=== PATIENT | male | born 1955 | race Caucasian/White ===

== ENCOUNTER 2021-09-29 15:53 | Inpatient (IN) | payer MEDICAID ==
[~2021-09-29] VITALS: Ht 180.3 cm; Wt 84.8 kg
--- NOTE | 2021-09-29 16:25 | NUR ---
Recived pt 66 years male came by pramdic c/o chest pain and sob for one week awake and fallow command c/o coughing and congetion at this time
[2021-09-29 16:31] LABS: BASOPHILS # (AUTO) 0.1 K/uL (0.0-0.2); BASOPHILS % (AUTO) 0.7 % (0.0-2.0); EOSINOPHILS % (AUTO) 0.4 % (0.0-6.0); HEMATOCRIT 32 % (39-51); LYMPHOCYTES # (AUTO) 2.1 K/uL (0.8-4.8); MEAN CORPUSCULAR HGB CONC 32 g/dl (31.0-36.0); MEAN CORPUSCULAR VOLUME 84 fL (80-96); MONOCYTES # (AUTO) 0.9 K/uL (0.1-1.30); MONOCYTES % (AUTO) 6.9 % (2.0-12.0); NEUTROPHILS # (AUTO) 9.9 K/uL (1.8-8.9); PLATELET COUNT (AUTO) 469 K/uL (150-450); RED BLOOD CELL COUNT(AUTO) 3.76 MIL/uL (4.5-6.0)
--- NOTE | 2021-09-29 17:15 | NUR ---
MOVE SHEET SUBMITTED AND CALLED FOR BED.
[2021-09-29 17:20] LABS: ALANINE AMINOTRANSFERASE 48 U/L (12-78); ALBUMIN 1.7 g/dL (3.4-5.0); ALKALINE PHOSPHATASE 73 U/L (46-116); ASPARTATE AMINOTRANSFERASE 32 U/L (15-37); BILIRUBIN,DIRECT 0.1 mg/dL (0.0-0.2); BILIRUBIN,TOTAL 0.3 mg/dL (0.2-1.0); CALCIUM, SERUM 8.1 mg/dL (8.5-10.1); CARBON DIOXIDE 26 mmol/L (21-32); CHLORIDE 98 mmol/L (98-107); CREATININE 0.8 mg/dL (0.6-1.3); GLUCOSE 137 mg/dL (74-106); POTASSIUM 3.8 mmol/L (3.5-5.1); SODIUM SERUM 130 mmol/L (136-145); TOTAL PROTEIN, SERUM 6.7 g/dL (6.4-8.2); UREA NITROGEN, BLOOD 13 mg/dL (7-18)
[2021-09-29] MEDS ORDERED: CEFTRIAXONE 1GM BAG (ER ONLY) 1 GM/50 ML PIGGYBACK IV ONE (17:30)
[2021-09-29] MEDS ORDERED: AZITHROMYCIN 250 MG TABLET PO ONE (17:30)
--- NOTE | 2021-09-29 17:48 | NUR ---
EPIC CALLED WET PLANT OPERATOR PAGED
[2021-09-29] MEDS ORDERED: IOHEXOL-350 100 ML VIAL IV ONE (18:10)
[2021-09-29] MEDS ORDERED: CT SWABBABLE VALVE TRANS SET 1 EA INFUS.SET MC ONE (18:10)
[2021-09-29] MEDS ORDERED: IV NS 0.9% 250 ML IV ONE (18:10)
[2021-09-29] MEDS ORDERED: CEFTRIAXONE 1GM BAG (ER ONLY) 50 ML IV ONE (18:30)
[2021-09-29] MEDS ORDERED: AZITHROMYCIN 250 MG TABLET ONE (18:32)
--- NOTE | 2021-09-29 18:41 | NUR ---
COVID SWAB DONE AND SENT TO LAB
--- NOTE | 2021-09-29 18:50 | NUR ---
coughing up thick yellow green color mod amt no sob or distress hob 45@ all time o2 sat 98% on room air
--- NOTE | 2021-09-29 19:15 | NUR ---
DUPLEX DOPPLER BEING DONE AT BEDSIDE
--- NOTE | 2021-09-29 19:23 | NUR ---
Hand off to Maia heck
--- NOTE | 2021-09-29 21:43 | NUR ---
COVID SWAB PCR DONE
--- NOTE | 2021-09-29 21:47 | NUR ---
REPORT GIVEN TO MEG QUINTANA
--- NOTE | 2021-09-29 22:22 | NUR ---
TRANSFERRED PT TO [facility] 108 VIA ACLS PROTOCOL.
[2021-09-29 22:44] VITALS: BP 124/69
[2021-09-29] MEDS ORDERED: Z GUARD REMEDY 4 OZ OINT TP PRN (23:30)
[2021-09-29] MEDS ORDERED: MORPHINE SULFATE INJ 2 MG/ML DISP.SYRIN IV PRN (23:30)
[2021-09-29] MEDS ORDERED: MAG HYDROX/AL HYDROX/SIMETH 30 ML UDC PO PRN (23:30)
[2021-09-29] MEDS ORDERED: ONDANSETRON HCL/PF 4 MG/2 ML VIAL IVP PRN (23:30)
[2021-09-29] MEDS ORDERED: MAGNESIUM HYDROXIDE 30 ML UDC PO PRN (23:30)
[2021-09-29] MEDS ORDERED: ACETAMINOPHEN 325 MG TABLET PO PRN (23:30)
[2021-09-29] MEDS: IV NS 0.9% 1,000 ML IV PRN (23:45)
[2021-09-30] VITALS: BP_SYST 111; BP_SYST 137; BP_DIAS 73; BP_DIAS 84
[2021-09-30 04:00] VITALS: BP 116/80
--- NOTE | 2021-09-30 06:51 | NUR ---
RN notes Admitted a 66 year old male from ER via stetcher for complaint of palpitation for 1 week. Admitted for diagnosis of arrythmia with no medical history. Alert and oriented. Verbally able to communicate needs. Ambulatory. Vital signs wnl except for heart rate which is tachycardia 119 to 150. Needs attended. Kept clean and dry. Will endorse to next shift for continuity of care.
[2021-09-30 06:58] LABS: BASOPHILS % (AUTO) 0.2 % (0.0-2.0); EOSINOPHILS % (AUTO) 0.5 % (0.0-6.0); HEMATOCRIT 27 % (39-51); LYMPHOCYTES # (AUTO) 1.7 K/uL (0.8-4.8); MEAN CORPUSCULAR HGB CONC 33 g/dl (31.0-36.0); MEAN CORPUSCULAR VOLUME 84 fL (80-96); MONOCYTES # (AUTO) 0.7 K/uL (0.1-1.30); MONOCYTES % (AUTO) 5.6 % (2.0-12.0); NEUTROPHILS # (AUTO) 9.5 K/uL (1.8-8.9); NEUTROPHILS % (AUTO) 79.7 % (43.0-81.0); PLATELET COUNT (AUTO) 466 K/uL (150-450); RED BLOOD CELL COUNT(AUTO) 3.27 MIL/uL (4.5-6.0); WHITE BLOOD COUNT (AUTO) 11.9 K/uL (4.3-11.0)
--- NOTE | 2021-09-30 07:30 | NUR ---
RN notes received patient in bed awake.patient . Alert and oriented times 4. Verbally able to communicate needs. Ambulatory. no pain noted. no sob noted. iv access lac intact. on tele monitor. bed locked in the lowest position. call light and table in reach. Will continue to monitor.
[2021-09-30] MEDS: PANTOPRAZOLE 40 MG TABLET.DR PO SCH (07:45)
[2021-09-30 07:53] LABS: CALCIUM, SERUM 7.9 mg/dL (8.5-10.1); CREATININE 0.6 mg/dL (0.6-1.3); MAGNESIUM 1.8 mg/dL (1.8-2.4); PHOSPHORUS 3.4 mg/dL (2.5-4.9); POTASSIUM 4.1 mmol/L (3.5-5.1)
[2021-09-30 08:00] VITALS: BP 107/76
[2021-09-30 09:39] LABS: THYROID STIMULATING HORMONE 1.174 uIU/mL (0.358-3.74)
[2021-09-30 12:00] VITALS: BP 112/76
[2021-09-30 16:13] VITALS: BP 118/79
--- NOTE | 2021-09-30 18:40 | NUR ---
RN closing notes patient in bed awake.patient is Alert and oriented times 4. Verbally able to communicate needs. Ambulatory. no pain noted. no sob noted. Iv access lac intact running 75 ml/hr. on tele monitor. all due meds given as ordered. sample of thoracenthesis fluid 110 ml sent to the lab at 1447 . 2 times chest xray done s/p thoracenthesis. Bed locked in the lowest position. call light and table in reach. Will endorse for ata.
--- NOTE | 2021-09-30 19:10 | NUR ---
RN NOTES RECEIVED REPORT FROM MORNING RN. PATIENT IN BED AWAKE A/O X4 VITAL SIGNS TAKEN AND RECORDED. FEBRILE. ALL SAFETY MEASURES IN PLACE AT ALL TIMES. HOB ELEVATED. CALL LIGHT WITHIN REACH. WILL CLOSELY MONITOR THE PATIENT.
[2021-09-30 20:00] VITALS: BP 128/70
[2021-09-30] MEDS ORDERED: AZITHROMYCIN 500 MG in IV D5W 250 ML IV SCH (21:00)
[2021-09-30] MEDS ORDERED: CEFTRIAXONE 1 G in IV D5W 50 ML IV SCH (21:00)
--- NOTE | 2021-09-30 22:00 | NUR ---
RN NOTES RE-INSERTED PERIPHERAL LINE AT R HAND G22 PATENT. NO INFILTRATION NOTED AT THIS TIME. IV ABX STARTED ORDERED
[2021-09-30] MEDS: ZOLPIDEM TARTRATE 5 MG TABLET PO PRN (22:14)
[2021-10-01] VITALS: BP 128/78
[2021-10-01] MEDS: IV NS 0.9% 1,000 ML IV PRN ×2 (00:05→13:38)
[2021-10-01 04:00] VITALS: BP 108/58
[2021-10-01 06:18] LABS: BILIRUBIN,URINE NEGATIVE (NEGATIVE); COLOR,URINE YELLOW (YELLOW); LEUKOCYTE ESTERASE ,URINE NEGATIVE (NEGATIVE); NITRITE, URINE NEGATIVE (NEGATIVE); PROTEIN,URINE NEGATIVE (NEGATIVE); UGLUCOSE NEGATIVE (NEGATIVE)
[2021-10-01 06:27] LABS: BACTERIA,URINE None seen /HPF (None Seen); RBC,URINE 0-2 /HPF (0-2); SQUAMOUS EPITHELIAL CELL,UR Few /HPF (None Seen); WBC,URINE 0-2 /HPF (0-3)
[2021-10-01 06:31] LABS: BASOPHILS % (AUTO) 0.3 % (0.0-2.0); EOSINOPHILS % (AUTO) 0.7 % (0.0-6.0); HEMATOCRIT 29 % (39-51); HEMOGLOBIN 9.3 g/dL (13.5-17.5); LYMPHOCYTES # (AUTO) 2.1 K/uL (0.8-4.8); LYMPHOCYTES % (AUTO) 17.4 % (20.0-44.0); MEAN CORPUSCULAR HGB CONC 33 g/dl (31.0-36.0); MEAN CORPUSCULAR VOLUME 84 fL (80-96); MONOCYTES # (AUTO) 0.7 K/uL (0.1-1.30); MONOCYTES % (AUTO) 6.2 % (2.0-12.0); NEUTROPHILS # (AUTO) 8.9 K/uL (1.8-8.9); NEUTROPHILS % (AUTO) 75.4 % (43.0-81.0); PLATELET COUNT (AUTO) 474 K/uL (150-450); RED BLOOD CELL COUNT(AUTO) 3.39 MIL/uL (4.5-6.0); WHITE BLOOD COUNT (AUTO) 11.8 K/uL (4.3-11.0)
[2021-10-01 06:32] LABS: CALCIUM, SERUM 8.1 mg/dL (8.5-10.1); CREATININE 0.7 mg/dL (0.6-1.3); MAGNESIUM 2.1 mg/dL (1.8-2.4); PHOSPHORUS 3.9 mg/dL (2.5-4.9); POTASSIUM 4.3 mmol/L (3.5-5.1)
--- NOTE | 2021-10-01 06:43 | NUR ---
RN NOTES PATIENT REMAINS STABLE NO SIGNIFICANT CHANGES IN HEALTH CONDITION AFEBRILE. ALL DUE MEDS GIVEN ORDERED. IV LINE PATENT AND INTACT. ALL SAFETY MEASURES IN PLACE AT ALL TIMES. HOB ELEVATED. CALL LIGHT WITHIN REACH. BED ON LOWEST POSITION AND LOCKED. ALL NEEDS ATTENDED. WILL ENDORSED TO MORNING SHIFT FOR TERRI
--- NOTE | 2021-10-01 07:23 | NUR ---
RN OPENING NOTES RCEIVED PATIENT IN BED, AWAKE, A/O X4, VERBALLY RESPONSIVE. NO SIGNS OF ACUTE DISTRESS NOTED. STABLE ON ROOM AIR, NO SOB NOTED. BREATHING EVEN AND UNLABORED. NOTED WITH IV ACCESS ON RIGHT HAND #22G, INTACT AND PATENT WITH NS @75 ML/HR INFUSING WELL. NO C/O PAIN OR DISCOMFORT AT THIS TIME. SAFETY MEASURES IN PLACE. BED LOCKED AND IN LOWEST POSITION, SR UP X2, CALL LIGHT AND TABLE PLACED WITHIN EASY REACH. WILL CONTINUE TO MONITOR PATIENT.
[2021-10-01] MEDS: PANTOPRAZOLE 40 MG TABLET.DR PO SCH (07:46)
[2021-10-01 08:00] VITALS: BP 102/73
[2021-10-01 12:00] VITALS: BP 101/68
[2021-10-01] MEDS: SOD FERRIC GLUC 125 MG in IV NS 0.9% 100 ML IV SCH (15:10)
[2021-10-01 16:00] VITALS: BP 108/68
--- NOTE | 2021-10-01 18:35 | NUR ---
RN CLOSING NOTES PATIENT RESTING IN BED, AWAKE, A/O X4. NO SIGNS OF ACUTE DISTRESS NOTED. REMAINS STABLE ON ROOM AIR, NO SOB NOTED. BREATHING EVEN AND UNLABORED. STILL NOTED WITH OCCASIONAL NON-PRODUCTIVE COUGH. ON TELE MONITOR SHOWING SINUS TACH IN 100-110'S. WITH IV ACCESS ON RIGHT HAND #22G, INTACT AND PATENT WITH NS @75 ML/HR INFUSING WELL. ALL DUE MEDS GIVEN, TOLERATED WELL. SAFETY MEASURES MAINTAINED. BED LOCKED AND IN LOWEST POSITION, SR UP X2, CALL LIGHT AND TABLE PLACED WITHIN EASY REACH. WILL ENDORSE TO NEXT SHIFT FOR CONTINUITY OF CARE.
--- NOTE | 2021-10-01 19:20 | NUR ---
RN NOTE PT RECEIVED IN BED. PT IS ABLE TO AMBULATE. ALERT AND ORIENTED X4, ABLE TO VERBALIZE NEEDS. PT ON ROOM AIR SHOWING NO S/SX OF RESP DISTRESS/SOB. BREATHING EVEN AND UNLABORED. ON SENIOR ARCHITECT SHOWING ST. DENIES PAIN/CHEST PAIN. ON CARDIAC DIET. IV ACCESS NOTED ON RIGHT HAND #22, LINE FLUSHED, PATENT, AND INTACT WITH NO SIGNS OF INFILTRATION. 0.9% NS RUNNING AT 75 CC/HR. ALL SAFETY MEASURES IMPLEMENTED. CALL LIGHT WITHIN REACH. BED LOCKED AND IN LOWEST POSITION. HOB ELEVATED. WILL CONTINUE TO MONITOR AND ASSESS FOR ANY CHANGES DURING SHIFT.
[2021-10-01 20:00] VITALS: BP 100/56
[2021-10-01] MEDS ORDERED: LEVOFLOXACIN 750 MG /D5W 150ML 150 ML IV ONE (21:19)
[2021-10-01] MEDS: LEVOFLOXACIN 750 MG /D5W 150ML 750 MG in PREMIX 1 EA IV SCH (21:42)
[2021-10-01] MEDS: ZOLPIDEM TARTRATE 5 MG TABLET PO PRN (22:16)
[2021-10-01] MEDS ORDERED: PIPERACILLIN /TAZOBACTAM 3.375 G VIAL IV ONE (23:34)
[2021-10-01] MEDS: ZOSYN IVPB 3.375 G in IV D5W 50ml IV SCH (23:39)
[2021-10-02] VITALS: BP 100/63
[2021-10-02] MEDS ORDERED: PIPERACILLIN /TAZOBACTAM 3.375 G in IV D5W 50 ML IV SCH ×2
[2021-10-02 04:00] VITALS: BP 105/65
[2021-10-02] MEDS ORDERED: PIPERACILLIN /TAZOBACTAM 3.375 G VIAL IV ONE (04:47)
[2021-10-02] MEDS: ZOSYN IVPB 3.375 G in IV D5W 50ml IV SCH (05:40)
[2021-10-02] MEDS: IV NS 0.9% 1,000 ML IV PRN ×2 (05:40→17:45)
[2021-10-02 06:50] LABS: BASOPHILS # (AUTO) 0.1 K/uL (0.0-0.2); BASOPHILS % (AUTO) 0.6 % (0.0-2.0); EOSINOPHILS % (AUTO) 0.5 % (0.0-6.0); HEMATOCRIT 28 % (39-51); HEMOGLOBIN 9.1 g/dL (13.5-17.5); LYMPHOCYTES # (AUTO) 1.8 K/uL (0.8-4.8); LYMPHOCYTES % (AUTO) 15.5 % (20.0-44.0); MEAN CORPUSCULAR HGB CONC 33 g/dl (31.0-36.0); MEAN CORPUSCULAR VOLUME 84 fL (80-96); MONOCYTES # (AUTO) 0.7 K/uL (0.1-1.30); MONOCYTES % (AUTO) 6.3 % (2.0-12.0); NEUTROPHILS # (AUTO) 8.8 K/uL (1.8-8.9); NEUTROPHILS % (AUTO) 77.1 % (43.0-81.0); PLATELET COUNT (AUTO) 470 K/uL (150-450); RED BLOOD CELL COUNT(AUTO) 3.29 MIL/uL (4.5-6.0); WHITE BLOOD COUNT (AUTO) 11.4 K/uL (4.3-11.0)
--- NOTE | 2021-10-02 06:53 | NUR ---
RN NOTE NO CHANGES IN PT CONDITION DURING SHIFT. PT ON ROOM AIR SHOWING NO S/SX OF RESP DISTRESS/SOB. BREATHING EVEN AND UNLABORED. ON VEGETABLE TIER SHOWING ST. DENIES PAIN/CHEST PAIN. IV ACCESS NOTED ON RIGHT HAND #22, LINE FLUSHED, PATENT, AND INTACT WITH NO SIGNS OF INFILTRATION. 0.9% NS RUNNING AT 75 CC/HR. ALL SAFETY MEASURES IMPLEMENTED. ALL DUE MEDS GIVEN ORDERED. CALL LIGHT WITHIN REACH. BED LOCKED AND IN LOWEST POSITION. HOB ELEVATED. WILL ENDORSE TO MORNING SHIFT RN FOR TERRI.
--- NOTE | 2021-10-02 07:47 | NUR ---
RN OPENING NOTES Patient seen comfortably lying in bed, breathing even and unlabored, no shortness of breath, no grimacing, denies any pain or discomfort at this time, no apparent distress noted. Call light left within reach, safety precautions in place, brakes locked, side rails up X 2, will monitor closely for any changes.
[2021-10-02 08:00] VITALS: BP 108/68
[2021-10-02] MEDS: PANTOPRAZOLE 40 MG TABLET.DR PO SCH (08:31)
[2021-10-02 08:41] LABS: CALCIUM, SERUM 8.3 mg/dL (8.5-10.1); CREATININE 0.7 mg/dL (0.6-1.3); MAGNESIUM 1.9 mg/dL (1.8-2.4); PHOSPHORUS 4.1 mg/dL (2.5-4.9); POTASSIUM 4.1 mmol/L (3.5-5.1)
--- NOTE | 2021-10-02 10:53 | NUR ---
Patient seen by Dr. Saez (Warehouse Team Member) with new orders for computed tomography guided right sided pigtail insertion then connect to pleura-vac (diagnosis: emphyema), orders noted and carried out, called radiologist to verify that orders are seen in the system, spoke to Sean from radiology.
[2021-10-02] MEDS ORDERED: LORAZEPAM 1 MG TABLET PO PRN (11:00)
[2021-10-02 11:07] LABS: *SPE A/G RATIO 0.5 (0.7-1.7); *SPE ALPHA-1-GLOBULIN 0.5 g/dL (0.0-0.4); *SPE BETA GLOBULIN 0.9 g/dL (0.7-1.3); *SPE M-SPIKE Not Observed g/dL (Not Observed)
[2021-10-02 12:00] VITALS: BP 103/70
[2021-10-02] MEDS: PIPERACILLIN /TAZOBACTAM 3.375 G in IV D5W 100 ML IV SCH ×2 (12:55→21:55)
--- NOTE | 2021-10-02 14:00 | NUR ---
Called Radiology to verify if CT guided right-sided pigtail insertion is to be done today, spoke to Sean and he said that order is in the system and will call unit back to verify if it will be done today. Dr. Saez, charge nurse, and patient made aware of the situation. Patient stated that he feels okay right now and will call for assistance if he feels something unusual, no apparent distress noted, will monitor closely for any changes.
[2021-10-02] MEDS: SOD FERRIC GLUC 125 MG in IV NS 0.9% 100 ML IV SCH (15:37)
[2021-10-02 16:00] VITALS: BP 119/72
--- NOTE | 2021-10-02 18:18 | NUR ---
Called Radiology to verify if orders for CT guided right-sided pigtail insertion is appearing in the system, spoke to Shayna and she stated that she is seeing the orders and procedure possibly to be done in am, Shayna from Radiology also added that order is clear and if needs to be edited, it will be edited. Manager Ed (Dr. Saez), informed of the situation and acknowledged. Charge nurse, and patient also made aware of the situation.
--- NOTE | 2021-10-02 18:43 | NUR ---
RN CLOSING NOTES Patient lying in bed, no apparent distress noted, no shortness of breath, respirations even and unlabored, no dizziness, no palpitation, no chest pain, denies any pain or discomfort. All medications given per MD order, tolerating well. Patient is on IV fluids NS at 75ml/hr infusing well on his right hand peripheral IV line, IV site remained patent and flushing well, no swelling, no redness at this time. All needs attended, kept clean and dry, safety precautions in place, brakes locked, frequent visual checks rendered, frequent repositioning done, side rails up X 2, call light left within reach, will endorse to next shift for continuity of care.
--- NOTE | 2021-10-02 19:20 | NUR ---
RN NOTE PT RECEIVED IN BED. PT IS ABLE TO AMBULATE. ALERT AND ORIENTED X4, ABLE TO VERBALIZE NEEDS. PT ON ROOM AIR SHOWING NO S/SX OF RESP DISTRESS/SOB. BREATHING EVEN AND UNLABORED. ON VAULT CLERK SHOWING ST. DENIES PAIN/CHEST PAIN. IV ACCESS NOTED ON RIGHT HAND #22, LINE FLUSHED, PATENT, AND INTACT WITH NO SIGNS OF INFILTRATION. 0.9% NS RUNNING AT 75 CC/HR. ALL SAFETY MEASURES IMPLEMENTED. CALL LIGHT WITHIN REACH. BED LOCKED AND IN LOWEST POSITION. HOB ELEVATED. WILL CONTINUE TO MONITOR AND ASSESS FOR ANY CHANGES DURING SHIFT.
[2021-10-02 20:00] VITALS: BP 125/80
[2021-10-02] MEDS: LEVOFLOXACIN 750 MG /D5W 150ML 750 MG in PREMIX 1 EA IV SCH (20:38)
[2021-10-03] VITALS: BP 101/52
[2021-10-03 04:00] VITALS: BP 110/74
[2021-10-03] MEDS: PIPERACILLIN /TAZOBACTAM 3.375 G in IV D5W 100 ML IV SCH ×3 (05:20→20:48)
[2021-10-03 06:46] LABS: CALCIUM, SERUM 8.3 mg/dL (8.5-10.1); CREATININE 0.6 mg/dL (0.6-1.3); PHOSPHORUS 3.8 mg/dL (2.5-4.9); POTASSIUM 3.9 mmol/L (3.5-5.1)
--- NOTE | 2021-10-03 07:01 | NUR ---
RN NOTE NO CHANGES IN PT CONDITION DURING SHIFT. PT ON ROOM AIR SHOWING NO S/SX OF RESP DISTRESS/SOB. BREATHING EVEN AND UNLABORED. ON OPTICAL ADVISOR SHOWING ST. DENIES PAIN/CHEST PAIN. IV ACCESS NOTED ON RIGHT HAND #22, LINE FLUSHED, PATENT, AND INTACT WITH NO SIGNS OF INFILTRATION. 0.9% NS RUNNING AT 75 CC/HR. ALL SAFETY MEASURES IMPLEMENTED. ALL DUE MEDS GIVEN ORDERED. CALL LIGHT WITHIN REACH. BED LOCKED AND IN LOWEST POSITION. HOB ELEVATED. WILL ENDORSE TO MORNING SHIFT RN FOR TERRI.
[2021-10-03 07:02] LABS: BASOPHILS % (AUTO) 0.5 % (0.0-2.0); EOSINOPHILS % (AUTO) 0.7 % (0.0-6.0); HEMATOCRIT 29 % (39-51); HEMOGLOBIN 9.3 g/dL (13.5-17.5); LYMPHOCYTES # (AUTO) 1.6 K/uL (0.8-4.8); LYMPHOCYTES % (AUTO) 18.8 % (20.0-44.0); MEAN CORPUSCULAR HGB CONC 33 g/dl (31.0-36.0); MEAN CORPUSCULAR VOLUME 84 fL (80-96); MONOCYTES # (AUTO) 0.6 K/uL (0.1-1.30); MONOCYTES % (AUTO) 7.2 % (2.0-12.0); NEUTROPHILS # (AUTO) 6.2 K/uL (1.8-8.9); NEUTROPHILS % (AUTO) 72.8 % (43.0-81.0); PLATELET COUNT (AUTO) 429 K/uL (150-450); WHITE BLOOD COUNT (AUTO) 8.5 K/uL (4.3-11.0)
--- NOTE | 2021-10-03 07:31 | NUR ---
IMAGING TECH OPENING NOTES PT RECEIVED IN BED. PT IS ABLE TO AMBULATE. A/O X4, ABLE TO VERBALIZE NEEDS. PT ON ROOM AIR SHOWING NO S/SX OF RESP DISTRESS/SOB. BREATHING EVEN AND UNLABORED. ON MANAGER MED SURG SHOWING ST. DENIES PAIN/CHEST PAIN. IV ACCESS NOTED ON RIGHT HAND #22, LINE FLUSHED, PATENT, AND INTACT WITH NO SIGNS OF INFILTRATION. 0.9% NS RUNNING AT 75 CC/HR. ALL SAFETY MEASURES IMPLEMENTED. CALL LIGHT WITHIN REACH. BED LOCKED AND IN LOWEST POSITION. HOB ELEVATED. WILL CONTINUE TO MONITOR.
[2021-10-03 08:00] VITALS: BP 120/70
[2021-10-03] MEDS: PANTOPRAZOLE 40 MG TABLET.DR PO SCH (08:03)
[2021-10-03] MEDS: SERTRALINE HCL 25 MG TABLET PO SCH (08:04)
[2021-10-03 12:00] VITALS: BP 113/70
[2021-10-03] MEDS: SOD FERRIC GLUC 125 MG in IV NS 0.9% 100 ML IV SCH (14:28)
[2021-10-03 16:00] VITALS: BP 103/65
[2021-10-03] MEDS: IV NS 0.9% 1,000 ML IV PRN (18:15)
--- NOTE | 2021-10-03 18:37 | NUR ---
PUMP INSTALLER CLOSING NOTES PATIENT RESTING IN BED, AWAKE, A/O X4. NO SIGNS OF ACUTE DISTRESS NOTED. REMAINS STABLE ON ROOM AIR, NO SOB NOTED. BREATHING EVEN AND UNLABORED. STILL NOTED WITH OCCASIONAL NON-PRODUCTIVE COUGH. ON TELE MONITOR SHOWING SINUS TACH IN 100-110'S. WITH IV ACCESS ON RIGHT ARM MIDLINE 18G, INTACT AND PATENT WITH NS @75 ML/HR INFUSING WELL. ALL DUE MEDS GIVEN, TOLERATED WELL. SAFETY MEASURES MAINTAINED. BED LOCKED AND IN LOWEST POSITION, SR UP X2, CALL LIGHT AND TABLE PLACED WITHIN EASY REACH. WILL ENDORSE TO NEXT SHIFT FOR TERRI.
--- NOTE | 2021-10-03 19:30 | NUR ---
PT RECEIVED IN BED. PT IS ABLE TO AMBULATE. ALERT AND ORIENTED X4, ABLE TO VERBALIZE NEEDS. PT ON ROOM AIR SHOWING NO S/SX OF RESP DISTRESS/SOB. BREATHING EVEN AND UNLABORED. ON LABEL STAMPER SHOWING ST. DENIES PAIN/CHEST PAIN. MARYA MIDLINE FLUSHED, PATENT, AND INTACT WITH NO SIGNS OF INFILTRATION. 0.9% NS RUNNING AT 75 CC/HR. ALL SAFETY MEASURES IMPLEMENTED. CALL LIGHT WITHIN REACH. BED LOCKED AND IN LOWEST POSITION. HOB ELEVATED. WILL CONTINUE TO MONITOR AND ASSESS FOR ANY CHANGES DURING SHIFT.
[2021-10-03 20:00] VITALS: BP 120/84
[2021-10-03] MEDS: LEVOFLOXACIN 750 MG /D5W 150ML 750 MG in PREMIX 1 EA IV SCH (20:10)
[2021-10-04] VITALS (7 sets, daily range): BP systolic 102–128; BP diastolic 66–83
[2021-10-04] MEDS: PIPERACILLIN /TAZOBACTAM 3.375 G in IV D5W 100 ML IV SCH ×3 (04:52→21:27)
[2021-10-04 06:29] LABS: BASOPHILS % (AUTO) 0.4 % (0.0-2.0); EOSINOPHILS % (AUTO) 0.9 % (0.0-6.0); HEMATOCRIT 29 % (39-51); HEMOGLOBIN 9.4 g/dL (13.5-17.5); LYMPHOCYTES # (AUTO) 1.9 K/uL (0.8-4.8); LYMPHOCYTES % (AUTO) 20.7 % (20.0-44.0); MEAN CORPUSCULAR HGB CONC 33 g/dl (31.0-36.0); MEAN CORPUSCULAR VOLUME 84 fL (80-96); MONOCYTES # (AUTO) 0.6 K/uL (0.1-1.30); MONOCYTES % (AUTO) 6.3 % (2.0-12.0); NEUTROPHILS # (AUTO) 6.6 K/uL (1.8-8.9); NEUTROPHILS % (AUTO) 71.7 % (43.0-81.0); PLATELET COUNT (AUTO) 442 K/uL (150-450); RED BLOOD CELL COUNT(AUTO) 3.41 MIL/uL (4.5-6.0); WHITE BLOOD COUNT (AUTO) 9.2 K/uL (4.3-11.0)
--- NOTE | 2021-10-04 06:57 | NUR ---
PT ON BED NO SOB NOTED STILL ON ROOM AIR SPO2 96-98% TELE MONITOR READS SINUS RHYTHM 90-100 WITH EPISODES OF SINUS TACHY 130'S WHEN PT IS GOING TO BATHROOM, PT IS NPO SINCE MIDNIGHT FOR POSSIBLE PIGTAIL INSERTION, NO SIGNIFICANT CHANGES ON CONDITION NOTED , ALL NEEDS ATTENDED, WILL ENDORSED TO AM SHIFT NURSE
--- NOTE | 2021-10-04 07:28 | NUR ---
RN OPENING NOTE PATIENT IN BED RESTING A/O X4, NO S/S OF PAIN NOTED AT THIS TIME. ON ROOM AIR, NO DISTRESS OR SHORTNESS OF BREATH NOTED. IV ACCESS MARYA MIDLINE, INTACT, PATENT AND FLUSHING WELL. PATIENT ON EXTERNAL SECTION LEADER AND MACHINE SETTER WITH CURRENT READING OF ST AND HR OF 105. FALL AND SAFETY MEASURES IN PLACE, BED ALARM ON, BED IN LOW AND LOCK POSITION, CALL LIGHT AND TABLE WITHIN EASY REACH, SIDE RAILS UP X2. WILL CONTINUE TO MONITOR.
[2021-10-04] MEDS: SERTRALINE HCL 25 MG TABLET PO SCH (08:15)
[2021-10-04] MEDS: PANTOPRAZOLE 40 MG TABLET.DR PO SCH (08:15)
[2021-10-04 08:43] LABS: CALCIUM, SERUM 8.3 mg/dL (8.5-10.1); CREATININE 0.7 mg/dL (0.6-1.3); MAGNESIUM 2.1 mg/dL (1.8-2.4); PHOSPHORUS 3.6 mg/dL (2.5-4.9); POTASSIUM 3.8 mmol/L (3.5-5.1)
[2021-10-04] MEDS ORDERED: FENTANYL PF 250MCG/5ML AMPUL IV PRN (10:00)
[2021-10-04] MEDS ORDERED: NALOXONE PREFILLED SYRINGE 2 MG/2 ML SYRINGE IV PRN (10:00)
[2021-10-04] MEDS ORDERED: FLUMAZENIL 0.5 MG VIAL IV PRN (10:00)
--- NOTE | 2021-10-04 11:56 | NUR ---
RN NOTE PATIENT IS NOT IN HIS ROOM PATIENT WAS TAKEN FOR PROCEDURE.
[2021-10-04] MEDS: MIDAZOLAM HCL 2 MG/2ML VIAL IV PRN ×2 (12:46→12:47)
[2021-10-04] MEDS ORDERED: FENTANYL PF 100MCG/2ML AMPUL IV ONE (13:29)
[2021-10-04] MEDS ORDERED: MIDAZOLAM HCL 2 MG/2ML VIAL IV ONE (13:29)
[2021-10-04] MEDS: HYDROCODONE/APAP 5/325MG TABLET PO PRN (18:09)
--- NOTE | 2021-10-04 18:47 | NUR ---
RN CLOSING NOTE PATIENT IN BED RESTING A/O X4, NO S/S OF PAIN NOTED AT THIS TIME. ON ROOM AIR, NO DISTRESS OR SHORTNESS OF BREATH NOTED. IV ACCESS MARYA MIDLINE, AND L HAND #22G INTACT, PATENT AND FLUSHING WELL. PATIENT ON EXTERNAL INSTRUMENT AND CONTROL TECHNICIAN WITH CURRENT READING OF ST AND HR OF 111. FALL AND SAFETY MEASURES IN PLACE, BED ALARM ON, BED IN LOW AND LOCK POSITION, CALL LIGHT AND TABLE WITHIN EASY REACH, SIDE RAILS UP X2. WILL ENDORSE TO SOFTWARE QUALITY AUTOMATION ENGINEER.
[2021-10-04] MEDS: SOD FERRIC GLUC 125 MG in IV NS 0.9% 100 ML IV SCH (18:53)
--- NOTE | 2021-10-04 19:30 | NUR ---
RN NOTE RECEIVED PT IN BED, AOX4. NOT IN ANY DISTRESS. DENIES ANY SOB, ON ROOM AIR. PT WITH RCHEST PIGTAIL, WITH YELLOWISH/PUS LIKE DRAINAGE. DRESSING CLEAN DRY AND INTACT. PT WITH IMPROVED PAIN. NORCO WAS GIVEN AN HOUR AGO. PT WITH LHAND AND ML ON MARYA PATENT AND INTACT, NS RUNNING AT 75ML/HR. ALL SAFETY MEASURE IMPLEMENTED PER PROTOCOL. WILL CONTINUE TO MONITOR.
[2021-10-04] MEDS: LEVOFLOXACIN 750 MG /D5W 150ML 750 MG in PREMIX 1 EA IV SCH (21:06)
[2021-10-05] VITALS: BP 119/79
[2021-10-05 04:00] VITALS: BP 126/87
[2021-10-05] MEDS: PIPERACILLIN /TAZOBACTAM 3.375 G in IV D5W 100 ML IV SCH ×3 (05:13→20:09)
[2021-10-05] MEDS: IV NS 0.9% 1,000 ML IV PRN ×2 (05:13→20:08)
[2021-10-05 06:25] LABS: BASOPHILS % (AUTO) 0.2 % (0.0-2.0); HEMATOCRIT 28 % (39-51); HEMOGLOBIN 9.1 g/dL (13.5-17.5); LYMPHOCYTES # (AUTO) 1.5 K/uL (0.8-4.8); LYMPHOCYTES % (AUTO) 13.8 % (20.0-44.0); MEAN CORPUSCULAR HGB CONC 33 g/dl (31.0-36.0); MEAN CORPUSCULAR VOLUME 84 fL (80-96); MONOCYTES # (AUTO) 0.4 K/uL (0.1-1.30); MONOCYTES % (AUTO) 3.3 % (2.0-12.0); NEUTROPHILS # (AUTO) 8.8 K/uL (1.8-8.9); NEUTROPHILS % (AUTO) 82.7 % (43.0-81.0); PLATELET COUNT (AUTO) 443 K/uL (150-450); RED BLOOD CELL COUNT(AUTO) 3.35 MIL/uL (4.5-6.0); WHITE BLOOD COUNT (AUTO) 10.7 K/uL (4.3-11.0)
[2021-10-05 06:26] LABS: BILIRUBIN,DIRECT 0.2 mg/dL (0.0-0.2); BILIRUBIN,TOTAL 0.4 mg/dL (0.2-1.0); CREATININE 0.6 mg/dL (0.6-1.3); TOTAL PROTEIN, SERUM 5.9 g/dL (6.4-8.2)
[2021-10-05 06:44] LABS: ALBUMIN 1.4 g/dL (3.4-5.0)
--- NOTE | 2021-10-05 07:10 | NUR ---
RN NOTE PT ABLE TO MAKE NEEDS KNOWN. TOLERATING ROOM AIR. NOT IN ANY DISTRESS. SR ON TELE MONITOR. DENIES PAIN AT THIS TIME. R PIGTAIL REMAIN IN PLACE, WITH 350ML PURULENT DRAINAGE. PT AFEBRILE. ALL DUE ATBS GIVEN ORDERED, CONTINUE ON IVFLUIDS OF NS 75ML/HR. INFUSING WELL. WILL ENDORSE TO NEXT SHIFT NURSE FOR TERRI
--- NOTE | 2021-10-05 07:25 | NUR ---
ms rn received on bed, awake,alert,oriented x4,not in any form of distress, respirations even and unlabored,no sob noted, noted to have pleural drain w/ pus like output,moderate amount, denies pain at this time, repositioned for comfort.
[2021-10-05 08:00] VITALS: BP 126/87
--- NOTE | 2021-10-05 09:20 | NUR ---
ms umang breakfast serve,due meds given,tolerated well.
--- NOTE | 2021-10-05 09:30 | NUR ---
ms rn was seen by dr. delgadillo w/ sarahi to connecto pigtail to oasis water seal drain to wall suction.
[2021-10-05] MEDS: PANTOPRAZOLE 40 MG TABLET.DR PO SCH (09:36)
[2021-10-05] MEDS: SERTRALINE HCL 25 MG TABLET PO SCH (09:36)
[2021-10-05 12:00] VITALS: BP 119/72
--- NOTE | 2021-10-05 15:00 | NUR ---
ms rn on kendra no distress noted.
--- NOTE | 2021-10-05 15:20 | NUR ---
ms rn was seen by tessa palomares w/ orders made and carried out.
[2021-10-05 16:00] VITALS: BP 119/72
[2021-10-05] MEDS: SOD FERRIC GLUC 125 MG in IV NS 0.9% 100 ML IV SCH (16:41)
--- NOTE | 2021-10-05 18:39 | NUR ---
ms rn on bed, denies pain at this time,all needs attended.
--- NOTE | 2021-10-05 19:24 | NUR ---
RN OPENING NOTES RECEIVED PT IN BED, AWAKE. AOx4, ABLE TO MAKE NEEDS KNOWN. ON RA AND TOLERATING WELL. NO SOB NOTED. NO S/SX OF RESPIRATORY DISTRESS NOTED. TELE MONITOR DETECTS SINUS RHYTHM AND SINUS TACHYCARDIA. IV ACCESS IN MARYA MIDLINE AND L HAND #22 RUNNING NS @75 ML/HR. SAFETY PRECAUTIONS IN PLACE: BED IN LOWEST, LOCKED POSITION, SIDERAILS UPx2, AND BRAKES ON. TABLE AND CALL LIGHT WITHIN REACH. WILL CONTINUE TO MONITOR.
[2021-10-05 20:00] VITALS: BP 128/86
[2021-10-05] MEDS: LEVOFLOXACIN 750 MG /D5W 150ML 750 MG in PREMIX 1 EA IV SCH (20:08)
--- NOTE | 2021-10-05 20:49 | NUR ---
ADMINISTERED ATIVAN @ 2028 FOR ANXIETY PER MD ORDER. VS WNL. WILL CONTINUE TO MONITOR.
[2021-10-06] VITALS: BP 125/84
[2021-10-06 04:00] VITALS: BP 131/88
[2021-10-06] MEDS: PIPERACILLIN /TAZOBACTAM 3.375 G in IV D5W 100 ML IV SCH ×3 (04:17→20:50)
--- NOTE | 2021-10-06 06:39 | NUR ---
RN CLOSING NOTES PT IN BED, AWAKE. AOx4, ABLE TO MAKE NEEDS KNOWN. ON RA AND TOLERATING WELL. NO SOB NOTED. NO S/SX OF RESPIRATORY DISTRESS NOTED. TELE MONITOR DETECTS SINUS RHYTHM WITH RATE OF 90s. IV ACCESS IN MARYA MIDLINE AND L HAND #22 RUNNING NS @75 ML/HR. ALL NEEDS MET. PT KEPT CLEAN AND DRY. SAFETY PRECAUTIONS IN PLACE: BED IN LOWEST, LOCKED POSITION, SIDERAILS UPx2, AND BRAKES ON. TABLE AND CALL LIGHT WITHIN REACH. WILL ENDORSE TO ONCOMING SHIFT FOR TERRI.
--- NOTE | 2021-10-06 07:00 | NUR ---
RN OPENING NOTES RECEIVED PATIENT BY OUTGOING NURSE FOR CONTINUITY OF CARE. PATIENT IN BED, AWAKE. AOx4, ABLE TO MAKE NEEDS KNOWN. ON RA AND TOLERATING WELL. NO SOB NOTED. NO S/SX OF RESPIRATORY DISTRESS NOTED. TELE MONITOR DETECTS SINUS RHYTHM WITH RATE OF 90s. IV ACCESS IN MARYA MIDLINE AND L HAND #22 RUNNING NS @75 ML/HR. ALL NEEDS MET. Patient KEPT CLEAN AND DRY. SAFETY PRECAUTIONS IN PLACE: BED IN LOWEST, LOCKED POSITION, SIDE RAILS UPx2, AND BRAKES ON. TABLE AND CALL LIGHT WITHIN REACH. WILL CONTINUE TO MONITOR.
[2021-10-06] MEDS: PANTOPRAZOLE 40 MG TABLET.DR PO SCH (07:48)
[2021-10-06 08:00] VITALS: BP 125/88
[2021-10-06] MEDS: SERTRALINE HCL 25 MG TABLET PO SCH (08:28)
[2021-10-06 08:56] LABS: BASOPHILS % (AUTO) 0.5 % (0.0-2.0); EOSINOPHILS % (AUTO) 0.6 % (0.0-6.0); HEMATOCRIT 30 % (39-51); HEMOGLOBIN 9.7 g/dL (13.5-17.5); LYMPHOCYTES # (AUTO) 1.7 K/uL (0.8-4.8); LYMPHOCYTES % (AUTO) 19.9 % (20.0-44.0); MEAN CORPUSCULAR HGB CONC 32 g/dl (31.0-36.0); MEAN CORPUSCULAR VOLUME 84 fL (80-96); MONOCYTES # (AUTO) 0.4 K/uL (0.1-1.30); MONOCYTES % (AUTO) 4.6 % (2.0-12.0); NEUTROPHILS # (AUTO) 6.3 K/uL (1.8-8.9); NEUTROPHILS % (AUTO) 74.4 % (43.0-81.0); PLATELET COUNT (AUTO) 443 K/uL (150-450); RED BLOOD CELL COUNT(AUTO) 3.59 MIL/uL (4.5-6.0); WHITE BLOOD COUNT (AUTO) 8.5 K/uL (4.3-11.0)
[2021-10-06 09:19] LABS: CALCIUM, SERUM 8.2 mg/dL (8.5-10.1); CREATININE 0.6 mg/dL (0.6-1.3); MAGNESIUM 2.4 mg/dL (1.8-2.4); PHOSPHORUS 3.4 mg/dL (2.5-4.9); POTASSIUM 3.9 mmol/L (3.5-5.1)
--- NOTE | 2021-10-06 11:50 | NUR ---
called lab and spoke to CelesteBioDetego regarding plural fluid culture for result. Celeste said she should call [facility] and ask for result. Addendum: 10/06/21 at 1209 by NIKA GONZALEZ RN Celeste called back at 1157 and said they still looking for growth and they will finalized the result on Saturday.
[2021-10-06 12:00] VITALS: BP 129/89
[2021-10-06 16:00] VITALS: BP 138/92
--- NOTE | 2021-10-06 19:37 | NUR ---
RN CLOSING NOTES PT IN BED, AWAKE. AOx4, ABLE TO MAKE NEEDS KNOWN. ON RA AND TOLERATING WELL. NO SOB NOTED. NO S/SX OF RESPIRATORY DISTRESS NOTED. TELE MONITOR DETECTS SINUS RHYTHM WITH RATE OF 90s. IV ACCESS IN MARYA MIDLINE AND L HAND #22 RUNNING NS @75 ML/HR. ALL NEEDS MET. PATIENT HAS CHEST TUBE WITH NO OUTOUT DURING SHIFT. PT KEPT CLEAN AND DRY. SAFETY PRECAUTIONS IN PLACE: BED IN LOWEST, LOCKED POSITION, SIDERAILS UPx2, AND BRAKES ON. TABLE AND CALL LIGHT WITHIN REACH. WILL ENDORSE TO ONCOMING SHIFT FOR TERRI.
--- NOTE | 2021-10-06 19:44 | NUR ---
FIELD CONTROL INSPECTOR OPENING NOTE RECEIVED PATIENT IN BED A/OX4. NO S/S OF APPARENT DISTRESS . C/O 01/07 GENERALIZED PAIN -- WILL GIVE PAIN MEDICATION. TELE MONITOR READING SR 94 BPM. IV NS RUNNING AT 75CC/HR AT THIS TIME. SAFETY IN PLACE. WILL CONTINUE WITH PATIENT'S PLAN OF CARE.
[2021-10-06] MEDS: HYDROCODONE/APAP 5/325MG TABLET PO PRN (19:45)
[2021-10-06 21:34] VITALS: BP 136/86
[2021-10-07 00:40] VITALS: BP 131/85
[2021-10-07 04:00] VITALS: BP 126/81
[2021-10-07] MEDS: PIPERACILLIN /TAZOBACTAM 3.375 G in IV D5W 100 ML IV SCH ×3 (04:54→20:07)
[2021-10-07 06:57] LABS: BASOPHILS % (AUTO) 0.4 % (0.0-2.0); EOSINOPHILS % (AUTO) 1.4 % (0.0-6.0); HEMATOCRIT 31 % (39-51); HEMOGLOBIN 9.9 g/dL (13.5-17.5); LYMPHOCYTES # (AUTO) 2.3 K/uL (0.8-4.8); LYMPHOCYTES % (AUTO) 29.5 % (20.0-44.0); MEAN CORPUSCULAR HGB CONC 32 g/dl (31.0-36.0); MEAN CORPUSCULAR VOLUME 85 fL (80-96); MONOCYTES # (AUTO) 0.4 K/uL (0.1-1.30); MONOCYTES % (AUTO) 5.2 % (2.0-12.0); NEUTROPHILS # (AUTO) 4.8 K/uL (1.8-8.9); NEUTROPHILS % (AUTO) 63.5 % (43.0-81.0); PLATELET COUNT (AUTO) 454 K/uL (150-450); RED BLOOD CELL COUNT(AUTO) 3.67 MIL/uL (4.5-6.0); WHITE BLOOD COUNT (AUTO) 7.6 K/uL (4.3-11.0)
--- NOTE | 2021-10-07 07:00 | NUR ---
QUILL REAMER NOTES PATIENT IN BED WITH EYES CLOSED, EASY TO AROUSE. A/OX4. NO S/S OF APPARENT DISTRESS IN ROOM AIR. NO C/O PAIN AT THIS TIME. CHEST TUBE IN PLACE. IV ZOSYN RUNNING AT 25ML/HR AT THIS TIME. SAFETY MEASURES IN PLACE. WILL CONTINUE TO MONITOR.
[2021-10-07 07:06] LABS: CALCIUM, SERUM 8.1 mg/dL (8.5-10.1); CREATININE 0.7 mg/dL (0.6-1.3); MAGNESIUM 2.3 mg/dL (1.8-2.4); PHOSPHORUS 3.9 mg/dL (2.5-4.9)
--- NOTE | 2021-10-07 07:20 | NUR ---
DIRECTOR OF SCOUT WORK CLOSING PATIENT IN BED WITH EYES CLOSED, EASY TO AROUSE. A/OX4. NO S/S OF APPARENT DISTRESS IN ROOM AIR. NO C/O PAIN AT THIS TIME. CHEST TUBE IN PLACE WITH NO OUTPUTS ON MY SHIFT, NO SIGNIFICANT CHANGE SINCE LAST ENDORSEMENT. IV ZOSYN IS STILL RUNNING AT 25ML/HR AT THIS TIME. SAFETY KEPT IN PLACE THE WHOLE SHIFT. ENDORSED TO HELLERTOWN FOR CONTINUITY OF CARE.
[2021-10-07 08:00] VITALS: BP 132/78
[2021-10-07] MEDS: PANTOPRAZOLE 40 MG TABLET.DR PO SCH (08:17)
[2021-10-07] MEDS: SERTRALINE HCL 25 MG TABLET PO SCH (09:56)
[2021-10-07 12:00] VITALS: BP 128/84
[2021-10-07 16:00] VITALS: BP 123/73
--- NOTE | 2021-10-07 19:00 | NUR ---
VISUAL SUPERVISOR CLOSING NOTE PATIENT IN BED WITH EYES CLOSED, EASY TO AROUSE. A/OX4. NO S/S OF APPARENT DISTRESS IN ROOM AIR. NO C/O PAIN OR DISCOMFORT AT THIS TIME. PIG TAIL R CHEST TUBE IN PLACE AT 250 ML DRAINAGE (ABOUT 30 CC PLEURAL DRAINAGE DURING SHIFT). NS @ 100 ML/HR VIA L HAND IV. SAFETY MEASURES IN PLACE: BED IN LOWEST LOCKED POSITION, SIDE RAILS UP X 2, CALL LIGHT WITHIN REACH. WILL ENDORSE TO ACUPRESSURE THERAPIST FOR TERRI.
--- NOTE | 2021-10-07 19:15 | NUR ---
SAMPLE DISPLAY PREPARER OPENING NOTES RECEIVED PATIENT LAYING AWAKE IN BED. A/O X4. PATIENT WITH REGULAR AND UNLABORED BREATHING ON ROOM AIR TOLERATED WELL. NO SIGNS AND SYMPTOMS OF DISTRESS AT THIS TIME. NO COMPLAINS OF PAIN OR DISCOMFORT AT THIS TIME. R CHEST TUBE PIGTAIL. IV ACCESSES L HAND G #22 INFUSING NS @ 75 ML/HR. MARYA MIDLINE SL. IV ACCESSES PATENT AND INTACT. SAFETY PRECAUTIONS ENFORCED WITH BED LOCKED AND AT LOWEST POSITION. SIDERAILS UP X2. CALL LIGHT WITHIN REACH AT ALL TIMES. WILL CONTINUE TO MONITOR PATIENT.
[2021-10-07 20:00] VITALS: BP 129/79
[2021-10-08] VITALS: BP_SYST 128; BP_SYST 144; BP_DIAS 85; BP_DIAS 87
[2021-10-08 04:00] VITALS: BP 134/91
[2021-10-08] MEDS: PIPERACILLIN /TAZOBACTAM 3.375 G in IV D5W 100 ML IV SCH ×3 (04:02→20:37)
--- NOTE | 2021-10-08 06:50 | NUR ---
DECKHAND OYSTER DREDGE CLOSING NOTES PATIENT STILL LAYING AWAKE IN BED. A/O X4. PATIENT WITH REGULAR AND UNLABORED BREATHING ON ROOM AIR TOLERATED WELL. NO SIGNS AND SYMPTOMS OF DISTRESS AT THIS TIME. NO COMPLAINS OF PAIN OR DISCOMFORT AT THIS TIME. PATIENT ON TELE MONITOR READING SR @ 78 BPM. R CHEST TUBE PIGTAIL. IV ACCESSES L HAND G #22 INFUSING NS @ 75 ML/HR. MARYA MIDLINE SL. IV ACCESSES PATENT AND INTACT. SAFETY PRECAUTIONS ENFORCED WITH BED LOCKED AND AT LOWEST POSITION. SIDERAILS UP X2. CALL LIGHT WITHIN REACH AT ALL TIMES. WILL ENDORSE CONTINUITY OF CARE TO DAY SHIFT NURSE.
--- NOTE | 2021-10-08 07:36 | NUR ---
RN OPENING NOTES Patient seen comfortably lying in bed, no SOB, no apparent distress noted, breathing even and unlabored, denies any pain or discomfort at this time, no grimacing. Call light left within reach, safety precautions in place, brakes locked, side rails up X 2, will monitor closely for any changes.
[2021-10-08 08:00] VITALS: BP 124/86
[2021-10-08 08:09] LABS: BASOPHILS # (AUTO) 0.1 K/uL (0.0-0.2); BASOPHILS % (AUTO) 0.7 % (0.0-2.0); EOSINOPHILS % (AUTO) 1.2 % (0.0-6.0); HEMATOCRIT 32 % (39-51); HEMOGLOBIN 10.2 g/dL (13.5-17.5); LYMPHOCYTES # (AUTO) 1.9 K/uL (0.8-4.8); LYMPHOCYTES % (AUTO) 25.2 % (20.0-44.0); MEAN CORPUSCULAR HGB CONC 33 g/dl (31.0-36.0); MEAN CORPUSCULAR VOLUME 84 fL (80-96); MONOCYTES # (AUTO) 0.4 K/uL (0.1-1.30); MONOCYTES % (AUTO) 5.5 % (2.0-12.0); NEUTROPHILS # (AUTO) 5.2 K/uL (1.8-8.9); NEUTROPHILS % (AUTO) 67.4 % (43.0-81.0); PLATELET COUNT (AUTO) 468 K/uL (150-450); RED BLOOD CELL COUNT(AUTO) 3.77 MIL/uL (4.5-6.0); WHITE BLOOD COUNT (AUTO) 7.7 K/uL (4.3-11.0)
[2021-10-08] MEDS: PANTOPRAZOLE 40 MG TABLET.DR PO SCH (08:44)
[2021-10-08] MEDS: SERTRALINE HCL 25 MG TABLET PO SCH (08:44)
[2021-10-08 08:53] LABS: CALCIUM, SERUM 8.6 mg/dL (8.5-10.1); CREATININE 0.6 mg/dL (0.6-1.3); MAGNESIUM 2.1 mg/dL (1.8-2.4); PHOSPHORUS 3.7 mg/dL (2.5-4.9); POTASSIUM 3.9 mmol/L (3.5-5.1)
[2021-10-08 12:00] VITALS: BP 122/78
[2021-10-08] MEDS: IV NS 0.9% 1,000 ML IV PRN (14:00)
[2021-10-08 16:00] VITALS: BP 145/95
--- NOTE | 2021-10-08 19:30 | NUR ---
RN OPENING NOTES RECEIVED PATIENT IN BED. A/O X4 AND VERBALLY RESPONSIVE. ON ROOM AIR AND PT TOLERATED WELL. BREATHING EVEN AND UNLABORED. NOTED R CHEST TUBE PIGTAIL WITH DRAINAGE. IV ACCESS ON MARYA MIDLINE AND LT HAND #22G INTACT AND PATENT. NO S/S OF INFILTRATIONS. RUNNING NS @ 75 ML/HR. NO C/O PAIN OR DISCOMFORT. NO ACUTE DISTRESS. ALL SAFETY PRECAUTIONS IN PLACE. BED IN LOWEST POSITION AND LOCKED. SIDERAILS UP X2. PLACE CALL LIGHT WITHIN REACH. WILL CONTINUE TO MONITOR.
--- NOTE | 2021-10-08 19:50 | NUR ---
RN CLOSING NOTES Patient lying in bed, no shortness of breath, respirations even and unlabored, no dizziness, no palpitations, no chest pain, denies any pain or discomfort, no grimacing. All due medications given per MD order and tolerated well. Patient has an order for IV fluids (NS at 75ml/hr) IV peripheral line on left hand and right upper arm midline covered with clean, intact and dry dressings and no swelling, no redness, no c/o pain or discomfort at site. Patients right chest tube pigtail remained patent, intact, draining with 100ml yellowish output during shift, no unusual odor, site covered with dry and clean dressings.Kept clean and dry, call light left within reach, all needs attended, aspiration precautions observed at all times, kept head of bed elevated, safety precautions in place, frequent visual checks rendered, brakes locked, side rails up X 2, will endorse to next shift for continuity of care.
[2021-10-08 20:00] VITALS: BP 138/95
[2021-10-08] MEDS: ZOLPIDEM TARTRATE 5 MG TABLET PO PRN (22:17)
--- NOTE | 2021-10-08 22:18 | NUR ---
RN NOTES: PT C/O UNABLE TO SLEEP. AMBIEN 5 MG TAB GIVEN PRN ORDER. PT TOLERATED WELL. WILL CONTINUE TO MONITOR
[2021-10-09] VITALS: BP 144/87
[2021-10-09 04:00] VITALS: BP 135/84
[2021-10-09] MEDS: PIPERACILLIN /TAZOBACTAM 3.375 G in IV D5W 100 ML IV SCH ×3 (04:23→20:33)
--- NOTE | 2021-10-09 06:50 | NUR ---
RN CLOSING NOTES PATIENT IN BED. A/O X4 AND VERBALLY RESPONSIVE. ON ROOM AIR, O2 SAT 94% AND PT TOLERATED WELL. BREATHING EVEN AND UNLABORED. NOTED RT CHEST TUBE PIGTAIL WITH DRAINAGE 50CC. IV ACCESS ON MARYA MIDLINE AND LT HAND #22G INTACT AND PATENT. NO S/S OF INFILTRATIONS. RUNNING NS @ 75 ML/HR. NO C/O PAIN OR DISCOMFORT. NO ACUTE DISTRESS. ALL DUE MEDS GIVEN ORDERED. ALL SAFETY PRECAUTIONS IN PLACE. BED IN LOWEST POSITION AND LOCKED. SIDERAILS UP X2. PLACE CALL LIGHT WITHIN REACH. WILL ENDORSE TO MORNING SHIFT NURSE.
[2021-10-09 08:00] VITALS: BP 135/91
--- NOTE | 2021-10-09 08:01 | NUR ---
RN OPENING NOTES RECEIVED PATIENT FROM OUTGOING NURSE FOR CONTINUITY OF CARE. PATIENT IN BED, AO X 4, IN NO S/SX OF ACUTE DISTRESS AT THIS TIME. ON ROOM AIR, IV SITE AT RIGHT UPPER ARM MIDLINE, LEFT HAND 22 KATHLEEN, PATENT AND FLUSHING WELL, NO S/S OF INFECTION OR INFILTRATION. SAFETY MEASURES IMPLEMENTED. PATIENT BED ALARM IS ON. HEAD OF BED ELEVATED. BED IS LOCKED, IN LOWEST POSITION AND SIDE RAILS UP. CALL LIGHT WITHIN REACH OF THE PATIENT. WILL CONTINUE TO MONITOR AND REASSESS FOR ANY CHANGES.
[2021-10-09 08:20] LABS: BASOPHILS % (AUTO) 0.3 % (0.0-2.0); EOSINOPHILS % (AUTO) 1.2 % (0.0-6.0); HEMATOCRIT 33 % (39-51); HEMOGLOBIN 10.8 g/dL (13.5-17.5); LYMPHOCYTES # (AUTO) 2.3 K/uL (0.8-4.8); LYMPHOCYTES % (AUTO) 31.1 % (20.0-44.0); MEAN CORPUSCULAR HGB CONC 33 g/dl (31.0-36.0); MEAN CORPUSCULAR VOLUME 84 fL (80-96); MONOCYTES # (AUTO) 0.4 K/uL (0.1-1.30); MONOCYTES % (AUTO) 5.3 % (2.0-12.0); NEUTROPHILS # (AUTO) 4.6 K/uL (1.8-8.9); NEUTROPHILS % (AUTO) 62.1 % (43.0-81.0); PLATELET COUNT (AUTO) 425 K/uL (150-450); RED BLOOD CELL COUNT(AUTO) 3.96 MIL/uL (4.5-6.0); WHITE BLOOD COUNT (AUTO) 7.5 K/uL (4.3-11.0)
[2021-10-09 08:34] LABS: CALCIUM, SERUM 8.3 mg/dL (8.5-10.1); CREATININE 0.7 mg/dL (0.6-1.3); MAGNESIUM 2.1 mg/dL (1.8-2.4); PHOSPHORUS 3.5 mg/dL (2.5-4.9); POTASSIUM 3.7 mmol/L (3.5-5.1)
[2021-10-09] MEDS: SERTRALINE HCL 25 MG TABLET PO SCH (09:11)
[2021-10-09] MEDS: PANTOPRAZOLE 40 MG TABLET.DR PO SCH (09:12)
[2021-10-09 12:00] VITALS: BP 132/87
[2021-10-09 16:00] VITALS: BP 139/92
--- NOTE | 2021-10-09 19:45 | NUR ---
RN OPENING NOTES RECEIVED PATIENT IN BED. A/O X4 AND VERBALLY RESPONSIVE. ON ROOM AIR AND PT TOLERATED WELL. BREATHING EVEN AND UNLABORED. NOTED R CHEST TUBE PIGTAIL WITH NO DRAINAGE. IV ACCESS ON MARYA MIDLINE AND LT HAND #22G INTACT AND PATENT. NO S/S OF INFILTRATIONS. RUNNING NS @ 75 ML/HR. NO C/O PAIN OR DISCOMFORT. NO ACUTE DISTRESS. ALL SAFETY PRECAUTIONS IN PLACE. BED IN LOWEST POSITION AND LOCKED. SIDERAILS UP X2. PLACE CALL LIGHT WITHIN REACH. WILL CONTINUE TO MONITOR.
[2021-10-09 20:00] VITALS: BP 137/93
--- NOTE | 2021-10-09 20:19 | NUR ---
RN CLOSING NOTES Patient lying in bed, no shortness of breath, respirations even and unlabored, no dizziness, no palpitations, no chest pain, denies any pain or discomfort, no grimacing. All due medications given per MD order and tolerated well. Patient has an order for IV fluids (NS at 75ml/hr) IV peripheral line on left hand and right upper arm midline covered with clean, intact and dry dressings and no swelling, no redness, no c/o pain or discomfort at site. Patients right chest tube pigtail remained patent, intact, draining with 0 ml output during shift, no unusual odor, site covered with dry and clean dressings.Kept clean and dry, call light left within reach, all needs attended, aspiration precautions observed at all times, kept head of bed elevated, safety precautions in place, frequent visual checks rendered, brakes locked, side rails up X 2, will endorse to next shift for continuity of care.
[2021-10-09] MEDS: IV NS 0.9% 1,000 ML IV PRN (23:31)
[2021-10-10 04:00] VITALS: BP 138/94
[2021-10-10] MEDS: PIPERACILLIN /TAZOBACTAM 3.375 G in IV D5W 100 ML IV SCH ×3 (04:36→20:41)
--- NOTE | 2021-10-10 06:33 | NUR ---
RN CLOSING NOTES PATIENT IN BED. A/O X4 AND VERBALLY RESPONSIVE. ON ROOM AIR, O2 SAT 95% AND PT TOLERATED WELL. BREATHING EVEN AND UNLABORED. NOTED RT CHEST TUBE PIGTAIL WITH NO DRAINAGE. IV ACCESS ON MARYA MIDLINE AND LT HAND #22G INTACT AND PATENT. NO S/S OF INFILTRATIONS. RUNNING NS @ 75 ML/HR. NO C/O PAIN OR DISCOMFORT. NO ACUTE DISTRESS. ALL DUE MEDS GIVEN ORDERED. ALL SAFETY PRECAUTIONS IN PLACE. BED IN LOWEST POSITION AND LOCKED. SIDERAILS UP X2. PLACE CALL LIGHT WITHIN REACH. WILL ENDORSE TO MORNING SHIFT NURSE.
--- NOTE | 2021-10-10 07:30 | NUR ---
RN OPENING NOTE PATIENT IN BED. A/O X4 AND VERBALLY RESPONSIVE. ON ROOM AIR, O2 SAT 97% AND PT TOLERATING WELL. BREATHING EVEN AND UNLABORED. NOTED RT CHEST TUBE PIGTAIL DRAINING THIN WHITE/YELLOW FLUID. IV ACCESS ON MARYA MIDLINE AND LT HAND #22G INTACT AND PATENT. NO S/S OF INFILTRATIONS. RUNNING NS @ 75 ML/HR. NO C/O PAIN OR DISCOMFORT. NO ACUTE DISTRESS. ALL SAFETY PRECAUTIONS IN PLACE. BED IN LOWEST POSITION AND LOCKED. SIDERAILS UP X2. PLACE CALL LIGHT WITHIN REACH. WILL CONTINUE TO MONITOR.
[2021-10-10 08:00] VITALS: BP 140/96
[2021-10-10] MEDS: SERTRALINE HCL 25 MG TABLET PO SCH (09:43)
[2021-10-10] MEDS: PANTOPRAZOLE 40 MG TABLET.DR PO SCH (09:43)
[2021-10-10 10:37] LABS: BASOPHILS % (AUTO) 0.7 % (0.0-2.0); EOSINOPHILS % (AUTO) 0.8 % (0.0-6.0); HEMATOCRIT 34 % (39-51); HEMOGLOBIN 10.7 g/dL (13.5-17.5); LYMPHOCYTES # (AUTO) 1.8 K/uL (0.8-4.8); LYMPHOCYTES % (AUTO) 28.6 % (20.0-44.0); MEAN CORPUSCULAR HGB CONC 32 g/dl (31.0-36.0); MEAN CORPUSCULAR VOLUME 86 fL (80-96); MONOCYTES # (AUTO) 0.3 K/uL (0.1-1.30); MONOCYTES % (AUTO) 4.5 % (2.0-12.0); NEUTROPHILS # (AUTO) 4.2 K/uL (1.8-8.9); NEUTROPHILS % (AUTO) 65.4 % (43.0-81.0); PLATELET COUNT (AUTO) 393 K/uL (150-450); RED BLOOD CELL COUNT(AUTO) 3.93 MIL/uL (4.5-6.0); WHITE BLOOD COUNT (AUTO) 6.4 K/uL (4.3-11.0)
[2021-10-10 10:54] LABS: CALCIUM, SERUM 8.3 mg/dL (8.5-10.1); CREATININE 0.9 mg/dL (0.6-1.3); MAGNESIUM 2.1 mg/dL (1.8-2.4); POTASSIUM 3.7 mmol/L (3.5-5.1)
[2021-10-10 12:00] VITALS: BP 140/96
[2021-10-10] MEDS ORDERED: NS 0.9% IV ONE (14:30)
[2021-10-10] MEDS ORDERED: ALTEPLASE CATHFLO IV ONE (14:30)
--- NOTE | 2021-10-10 14:47 | NUR ---
RN NOTE ALTEPLASE 10MG IN [address] BROWNING. INJECTED DIRECTLY INTO CHEST TUBE TO FOR LOCULATED EMPYEMA. CONSENT RECEIVED BY PATIENT. ADMINISTERED BY DR BROWNING. CT CLAMPLED X 6 HRS PER MD BROWNING.
[2021-10-10] MEDS: IV NS 0.9% 1,000 ML IV PRN (15:24)
[2021-10-10 16:00] VITALS: BP 135/92
--- NOTE | 2021-10-10 18:53 | NUR ---
RN CLOSING NOTE PT REMAINED STABLE THROUGHOUT SHIFT. PATIENT IN BED. A/O X4 AND VERBALLY RESPONSIVE. ON ROOM AIR, O2 SAT 97% AND PT TOLERATING WELL. BREATHING EVEN AND UNLABORED. NOTED RT CHEST TUBE PIGTAIL DRAINING THIN WHITE/YELLOW FLUID. CURRENTLY CLAMPLED PER MD ORDER. IV ACCESS ON MARYA MIDLINE INTACT AND PATENT. NO S/S OF INFILTRATIONS. RUNNING NS @ 75 ML/HR. NO C/O PAIN OR DISCOMFORT. NO ACUTE DISTRESS. ALL MEDS ADM PER MD ORDER. ALL NEEDS MET. ALL SAFETY PRECAUTIONS IN PLACE. BED IN LOWEST POSITION AND LOCKED. SIDERAILS UP X2. PLACE CALL LIGHT WITHIN REACH. WILL ENDORSE TO POOL TABLE OPERATOR RN.
--- NOTE | 2021-10-10 19:38 | NUR ---
RN OPENING NOTES, RECEIVED PATIENT IN BED. A/O X4 AND VERBALLY RESPONSIVE. ON ROOM AIR AND PT TOLERATING WELL. BREATHING EVEN AND UNLABORED. NOTED RT CHEST TUBE PIGTAIL CLUMPED AT THIS MOMENT, WILL BE RELEASE AT 2044. IV ACCESS ON MARYA MIDLINE INTACT AND PATENT. NO S/S OF INFILTRATIONS. RUNNING NS @ 75 ML/HR. NO C/O PAIN OR DISCOMFORT. NO ACUTE DISTRESS. ASSISTED HIM TO THE COMMODE. ALL SAFETY PRECAUTIONS IN PLACE. BED IN LOWEST POSITION AND LOCKED. SIDERAILS UP X2. PLACE CALL LIGHT WITHIN REACH. WILL CONTINUE TO MONITOR.
[2021-10-10 20:00] VITALS: BP 133/97
--- NOTE | 2021-10-10 20:55 | NUR ---
RN NOTES: AT 2044 RELEASED THE CLUMPED FROM CHEST TUBE PIGTAIL. WILL CONTINUE TO MONITOR
[2021-10-11 04:00] VITALS: BP 140/88
[2021-10-11] MEDS: IV NS 0.9% 1,000 ML IV PRN ×2 (04:58→21:15)
[2021-10-11] MEDS: PIPERACILLIN /TAZOBACTAM 3.375 G in IV D5W 100 ML IV SCH ×3 (04:58→21:05)
--- NOTE | 2021-10-11 06:40 | NUR ---
RN CLOSING NOTES PATIENT IN BED. A/O X4 AND VERBALLY RESPONSIVE. ON ROOM AIR, O2 SAT 95% AND PT TOLERATED WELL. BREATHING EVEN AND UNLABORED. NOTED RT CHEST TUBE PIGTAIL WITH 20CC DRAINAGE. IV ACCESS ON MARYA MIDLINE AND LT HAND #22G INTACT AND PATENT. NO S/S OF INFILTRATIONS. RUNNING NS @ 75 ML/HR. NO C/O PAIN OR DISCOMFORT. NO ACUTE DISTRESS. ALL DUE MEDS GIVEN ORDERED. ALL SAFETY PRECAUTIONS IN PLACE. BED IN LOWEST POSITION AND LOCKED. SIDERAILS UP X2. PLACE CALL LIGHT WITHIN REACH. WILL ENDORSE TO MORNING SHIFT NURSE.
[2021-10-11] MEDS: PANTOPRAZOLE 40 MG TABLET.DR PO SCH (08:24)
[2021-10-11] MEDS: SERTRALINE HCL 25 MG TABLET PO SCH (08:24)
--- NOTE | 2021-10-11 08:28 | NUR ---
RN NOTES PATIENT SEEN BY DR. MCCALL AT BEDSIDE, MADE AWARE OF PLAN OF CARE.
--- NOTE | 2021-10-11 09:22 | NUR ---
RN NOTES PATIENT SEEN BY DR. BROWNING TODAY. PER MD, KEEP PIGTAIL CATH AT SUCTION.
[2021-10-11 11:24] LABS: BASOPHILS # (AUTO) 0.1 K/uL (0.0-0.2); BASOPHILS % (AUTO) 1.1 % (0.0-2.0); EOSINOPHILS % (AUTO) 1.1 % (0.0-6.0); HEMATOCRIT 34 % (39-51); HEMOGLOBIN 10.9 g/dL (13.5-17.5); LYMPHOCYTES % (AUTO) 29.4 % (20.0-44.0); MEAN CORPUSCULAR HGB CONC 32 g/dl (31.0-36.0); MEAN CORPUSCULAR VOLUME 85 fL (80-96); MONOCYTES # (AUTO) 0.4 K/uL (0.1-1.30); MONOCYTES % (AUTO) 5.3 % (2.0-12.0); NEUTROPHILS # (AUTO) 4.4 K/uL (1.8-8.9); NEUTROPHILS % (AUTO) 63.1 % (43.0-81.0); PLATELET COUNT (AUTO) 379 K/uL (150-450); RED BLOOD CELL COUNT(AUTO) 3.99 MIL/uL (4.5-6.0)
[2021-10-11 12:00] VITALS: BP 118/90
[2021-10-11 12:09] LABS: CALCIUM, SERUM 8.2 mg/dL (8.5-10.1); POTASSIUM 3.6 mmol/L (3.5-5.1)
[2021-10-11 12:21] LABS: CREATININE 0.8 mg/dL (0.6-1.3)
--- NOTE | 2021-10-11 18:54 | NUR ---
RN NOTES PIGTAIL CATH INTACT, CURRENTLY CONNECTED TO WALL SUCTION. NO COMPLAINT OF PAIN/NAUSEA/VOMITING AT THIS TIME. ABLE TO CONSUME MEALS DURING THE SHIFT AND USE BSC FOR TOILETING. IVF CONTINUOUS. DUE MEDS GIVEN TODAY. SAFETY MEASURES MAINTAINED. WILL ENDORSE TO BOOKKEEPING MANAGER RN FOR TERRI.
[2021-10-11 20:00] VITALS: BP 134/87
--- NOTE | 2021-10-11 20:00 | NUR ---
MS RN NOTE PT IN BED AWAKE WATCHING TV. A/O X 4, NO SOB, NO DISTRESS OR DISCOMFORT NOTED. DENIES PAIN. PIGTAIL IN RT SIDE OF CHEST INTACT AND PATENT DRAINING WALL SUCTIONING CLOUDY FLUIDS NOTED. MARYA MIDLINE IVF INFUSING AT 75 ML/HR. NO S/S OF INFILTRATION NOTED. SIDE RAILS UP X 2 AND CALL LIGHT WITHIN REACH. VSS. CONTINUE TO MONITOR HIM.
[2021-10-12 04:00] VITALS: BP 129/83
[2021-10-12] MEDS: PIPERACILLIN /TAZOBACTAM 3.375 G in IV D5W 100 ML IV SCH ×3 (05:27→21:39)
--- NOTE | 2021-10-12 06:42 | NUR ---
MS RN NOTE PT IN BED ASLEEP, EASILY AROUSABLE, NO DISTRESS OR DISCOMFORT NOTED. DENIES PAIN. 0 ML OUTPUT NOTED FROM PIGTAIL. ALL NEEDS ATTENDED. WILL ENDORSE TO DAY SHIFT NURSE.
[2021-10-12 06:59] LABS: CALCIUM, SERUM 8.3 mg/dL (8.5-10.1); CREATININE 0.7 mg/dL (0.6-1.3); POTASSIUM 3.6 mmol/L (3.5-5.1)
[2021-10-12 07:15] LABS: BASOPHILS % (AUTO) 0.3 % (0.0-2.0); EOSINOPHILS % (AUTO) 1.4 % (0.0-6.0); HEMATOCRIT 32 % (39-51); HEMOGLOBIN 10.5 g/dL (13.5-17.5); LYMPHOCYTES # (AUTO) 2.1 K/uL (0.8-4.8); LYMPHOCYTES % (AUTO) 28.4 % (20.0-44.0); MEAN CORPUSCULAR HGB CONC 33 g/dl (31.0-36.0); MEAN CORPUSCULAR VOLUME 84 fL (80-96); MONOCYTES # (AUTO) 0.4 K/uL (0.1-1.30); MONOCYTES % (AUTO) 5.8 % (2.0-12.0); NEUTROPHILS # (AUTO) 4.7 K/uL (1.8-8.9); NEUTROPHILS % (AUTO) 64.1 % (43.0-81.0); PLATELET COUNT (AUTO) 333 K/uL (150-450); RED BLOOD CELL COUNT(AUTO) 3.76 MIL/uL (4.5-6.0); WHITE BLOOD COUNT (AUTO) 7.3 K/uL (4.3-11.0)
--- NOTE | 2021-10-12 07:24 | NUR ---
MS RN OPENING NOTES: RECEIVED PATIENT IN BED. A/O X4 AND VERBALLY RESPONSIVE. ON ROOM AIR, O2 SAT 97% AND PT TOLERATING WELL. BREATHING EVEN AND UNLABORED. NOTED RT CHEST TUBE PIGTAIL IN PLACE, PER NIGHT RN NO DRAINAGE NOTED. IV ACCESS ON MARYA MIDLINE AND LT HAND #22G INTACT AND PATENT. NO S/S OF INFILTRATIONS. RUNNING NS @ 75 ML/HR. NO C/O PAIN OR DISCOMFORT. NO ACUTE DISTRESS. ALL SAFETY PRECAUTIONS IN PLACE. BED IN LOWEST POSITION AND LOCKED. SIDE RAILS UP X2. PLACE CALL LIGHT WITHIN REACH. WILL CONTINUE TO MONITOR.
[2021-10-12] MEDS: PANTOPRAZOLE 40 MG TABLET.DR PO SCH (07:41)
[2021-10-12] MEDS: SERTRALINE HCL 25 MG TABLET PO SCH (08:25)
[2021-10-12 12:00] VITALS: BP 136/89
[2021-10-12] MEDS: IV NS 0.9% 1,000 ML IV PRN (12:08)
[2021-10-12 16:00] VITALS: BP 119/79
--- NOTE | 2021-10-12 19:09 | NUR ---
RN closing notes: patient is awake alert and oriented , IVF well tolerated, no pain or discomfort, pigtail chest tube patent, with 50 cc discharge,respiration is even and unlabored , all needs met, endorse to night worker
--- NOTE | 2021-10-12 19:10 | NUR ---
RN OPENING NOTES RECEIVED PATIENT ON BED, AWAKE, ALERT AND VERBALLY RESPONSIVE. ON ROOM AIR. RESPIRATORY EVEN AND UNLABORED, NO SOB NOTED. REMAIN AFEBRILE. NO S/S OF DISTRESS NOTED. NOTED WITH MARYA MID LINE AND LEFT HAND #22 PERIPHERAL LINE, INTACT PATENT, FLUSHED WITH NS. NO INFILTRATION NOTED AT SITE. RUNNING WITH NS 1L @ 75ML/HR. NOTED RIGHT CHEST TUBE PIGTAIL IN PLACED. SAFETY MEASURE PROVIDED. BED IN LOWEST POSITION, LOCKED. BED ALARM ARMED. CONTINUE TO MONITOR.
[2021-10-12 20:00] VITALS: BP 115/79
[2021-10-13] MEDS: IV NS 0.9% 1,000 ML IV PRN ×2 (02:03→14:50)
[2021-10-13 04:00] VITALS: BP 129/82
[2021-10-13] MEDS: PIPERACILLIN /TAZOBACTAM 3.375 G in IV D5W 100 ML IV SCH ×3 (05:30→21:13)
[2021-10-13 06:05] LABS: CALCIUM, SERUM 8.3 mg/dL (8.5-10.1); CREATININE 0.7 mg/dL (0.6-1.3); POTASSIUM 3.6 mmol/L (3.5-5.1)
[2021-10-13 06:40] LABS: BASOPHILS % (AUTO) 0.7 % (0.0-2.0); EOSINOPHILS % (AUTO) 1.6 % (0.0-6.0); HEMATOCRIT 32 % (39-51); HEMOGLOBIN 10.4 g/dL (13.5-17.5); LYMPHOCYTES % (AUTO) 33.3 % (20.0-44.0); MEAN CORPUSCULAR HGB CONC 33 g/dl (31.0-36.0); MEAN CORPUSCULAR VOLUME 85 fL (80-96); MONOCYTES # (AUTO) 0.4 K/uL (0.1-1.30); NEUTROPHILS # (AUTO) 3.6 K/uL (1.8-8.9); NEUTROPHILS % (AUTO) 58.4 % (43.0-81.0); PLATELET COUNT (AUTO) 319 K/uL (150-450); RED BLOOD CELL COUNT(AUTO) 3.74 MIL/uL (4.5-6.0); WHITE BLOOD COUNT (AUTO) 6.1 K/uL (4.3-11.0)
[2021-10-13] MEDS: PANTOPRAZOLE 40 MG TABLET.DR PO SCH (07:18)
--- NOTE | 2021-10-13 07:18 | NUR ---
RN NOTES NO SIGNIFICANT CHANGES TROUGH OUT THE SHIFT. RESPIRATORY EVEN AND UNLABORED, NO SOB NOTED. REMAIN AFEBRILE. NO S/S OF DISTRESS NOTED. RUNNING WITH NS 1L @ 75ML/HR. NOTED RIGHT CHEST TUBE PIGTAIL IN PLACED. SAFETY MEASURE PROVIDED. BED IN LOWEST POSITION, LOCKED. BED ALARM ARMED. ENDORSED TO NEXT SHIFT
--- NOTE | 2021-10-13 07:30 | NUR ---
RN OPENING NOTES: RECEIVED PATIENT ON BED, AWAKE, ALERT AND VERBALLY RESPONSIVE. ON ROOM AIR. RESPIRATORY EVEN AND UNLABORED, NO SOB NOTED. REMAIN AFEBRILE. NO S/S OF DISTRESS NOTED. NOTED WITH MARYA MID LINE , INTACT PATENT, FLUSHED WITH NS. NO INFILTRATION NOTED AT SITE. RUNNING WITH NS 1L @ 75ML/HR. NOTED RIGHT CHEST TUBE PIGTAIL IN PLACED. SAFETY MEASURE PROVIDED. BED IN LOWEST POSITION, LOCKED. BED ALARM ARMED. CONTINUE TO MONITOR.
[2021-10-13 08:00] VITALS: BP 130/89
[2021-10-13] MEDS: SERTRALINE HCL 25 MG TABLET PO SCH (08:57)
--- NOTE | 2021-10-13 11:30 | NUR ---
RN NOTES: RECEIVED A CALL FROM DR BROWNING,MADE AWARE THAT CHEST TUBE DRAINAGE AT NIGHT WAS ZERO, ASK TO CHECK FOR KINKS OR ANY OBSTRUCTION, NONE NOTED WILL CONTINUE TO MONITOR. PATIENT REMAIN A FEBRILLE ,DENIED ANY PAIN OR DISCOMFORT, NO SOB NOTED
[2021-10-13 16:00] VITALS: BP 122/79
--- NOTE | 2021-10-13 19:05 | NUR ---
RN OPENING NOTES RECEIVED PATIENT ON BED, AWAKE, A/0 X 4, ABLE TO MAKE NEEDS KNOWN. ON ROOM AIR. RESPIRATORY EVEN AND UNLABORED, NO SOB NOTED. REMAIN AFEBRILE. NO S/S OF DISTRESS NOTED. NOTED WITH MARYA MID LINE AND LEFT HAND #22 PERIPHERAL LINE, INTACT PATENT, FLUSHED WITH NS. NO INFILTRATION NOTED AT SITE. RUNNING WITH NS 1L @ 75ML/HR. NOTED RIGHT CHEST TUBE PIGTAIL IN PLACED. SAFETY MEASURE PROVIDED. BED IN LOWEST POSITION, LOCKED. BED ALARM ARMED. CONTINUE TO MONITOR.
--- NOTE | 2021-10-13 19:26 | NUR ---
RN closing notes: PATIENT IN BED. A/O X4 AND VERBALLY RESPONSIVE. ON ROOM AIR, O2 SAT 97% AND PT TOLERATED WELL. BREATHING EVEN AND UNLABORED. NOTED RT CHEST TUBE PIGTAIL WITH 50CC DRAINAGE. IV ACCESS ON MARYA MIDLINE INTACT AND PATENT. NO S/S OF INFILTRATIONS. RUNNING NS @ 75 ML/HR. NO C/O PAIN OR DISCOMFORT. NO ACUTE DISTRESS. ALL DUE MEDS GIVEN ORDERED. ALL SAFETY PRECAUTIONS IN PLACE. BED IN LOWEST POSITION AND LOCKED. SIDE RAILS UP X2. PLACE CALL LIGHT WITHIN REACH. WILL ENDORSE TO veneer redrier NURSE.
[2021-10-14] VITALS: BP 129/71
[2021-10-14] MEDS: IV NS 0.9% 1,000 ML IV PRN ×2 (04:17→21:30)
[2021-10-14] MEDS: PIPERACILLIN /TAZOBACTAM 3.375 G in IV D5W 100 ML IV SCH ×3 (05:12→21:10)
[2021-10-14 06:55] LABS: BASOPHILS # (AUTO) 0.1 K/uL (0.0-0.2); EOSINOPHILS % (AUTO) 1.3 % (0.0-6.0); HEMATOCRIT 32 % (39-51); HEMOGLOBIN 10.4 g/dL (13.5-17.5); LYMPHOCYTES % (AUTO) 33.1 % (20.0-44.0); MEAN CORPUSCULAR HGB CONC 32 g/dl (31.0-36.0); MEAN CORPUSCULAR VOLUME 85 fL (80-96); MONOCYTES # (AUTO) 0.3 K/uL (0.1-1.30); MONOCYTES % (AUTO) 5.5 % (2.0-12.0); NEUTROPHILS # (AUTO) 3.5 K/uL (1.8-8.9); NEUTROPHILS % (AUTO) 59.1 % (43.0-81.0); PLATELET COUNT (AUTO) 292 K/uL (150-450); RED BLOOD CELL COUNT(AUTO) 3.75 MIL/uL (4.5-6.0); WHITE BLOOD COUNT (AUTO) 5.9 K/uL (4.3-11.0)
[2021-10-14 06:56] LABS: CALCIUM, SERUM 8.5 mg/dL (8.5-10.1); CREATININE 0.8 mg/dL (0.6-1.3); POTASSIUM 3.5 mmol/L (3.5-5.1)
--- NOTE | 2021-10-14 07:18 | NUR ---
RN NOTES PATIENT REMAIN STABLE. RESPIRATORY EVEN AND UNLABORED, NO SOB NOTED. REMAIN AFEBRILE. NO S/S OF DISTRESS NOTED. RUNNING WITH NS 1L @ 75ML/HR. NOTED RIGHT CHEST TUBE PIGTAIL IN PLACED. SAFETY MEASURE PROVIDED. BED IN LOWEST POSITION, LOCKED. BED ALARM ARMED. ENDORSED TO NEXT SHIFT
[2021-10-14] MEDS: PANTOPRAZOLE 40 MG TABLET.DR PO SCH (07:46)
[2021-10-14 08:00] VITALS: BP 138/84
[2021-10-14] MEDS: SERTRALINE HCL 25 MG TABLET PO SCH (08:16)
[2021-10-14 16:00] VITALS: BP 132/86
--- NOTE | 2021-10-14 19:10 | NUR ---
RN NOTES RECEIVED REPORT FROM MORNING RN. PATIENT IN BED A/O X4 ABLE TO MAKE NEEDS KNOWN. WITH IV ACCESS AT MARYA MIDLINE PATENT FLUSHES WELL. WITH ONGOING IVF OF PNS @ 75CC/HR. WITH R PIGTAIL CATHETER INTACT CONNECTED TO CONTINUOUS SUCTION. VITAL SIGNS TAKEN AND RECORDED. AFEBRILE. ALL SAFETY MEASURES IN PLACE AT ALL TIMES. HOB OF BED ELEVATED. CALL LIGHT WITHIN REACH. WILL CLOSELY MONITOR THE PATIENT.
[2021-10-15 04:00] VITALS: BP 135/90
[2021-10-15] MEDS: PIPERACILLIN /TAZOBACTAM 3.375 G in IV D5W 100 ML IV SCH ×3 (05:34→21:39)
--- NOTE | 2021-10-15 06:42 | NUR ---
RN NOTES PATIENT REMAINS STABLE THE WHOLE SHIFT NO SIGNIFICANT CHANGES. ALL DUE MEDS GIVEN ORDERED. IV ACCES PATENT ON CONTINUOS NS@ 75CC/HR. PIGTAIL ON CONTINUOUS SUCTION DRAINING 15CC. ALL SAFETY MEASURES IN PLACE HOB ELEVATED BED ON LOWEST POSITION AND LOCKED. NO SOB NO DISTRESS NOTED THIS SHIFT. ENDORSED TO MORNING SHIFT FOR TERRI
--- NOTE | 2021-10-15 07:30 | NUR ---
MS RN OPENING NOTES RECEIVED PATIENT ON BED AWAKE AND A/O X4. ABLE TO MAKE NEEDS KNOWN. ON ROOM AIR TOLERATING WELL. NO SOB NOTED. WITH NO COMPLAINTS OF PAIN OR DISCOMFORT AT THIS TIME. WITH IV ACCESS AT MARYA MIDLINE WITH IVF NS @ 75CC/HR INFUSING WELL. WITH RIGHT PIGTAIL CATHETER CONNECTED TO CONTINUOUS SUCTION. SAFETY MEASURES IN PLACED. HOB OF BED ELEVATED. CALL LIGHT WITHIN REACH. WILL CONTINUE TO MONITOR.
[2021-10-15 07:31] LABS: BASOPHILS # (AUTO) 0.1 K/uL (0.0-0.2); EOSINOPHILS % (AUTO) 1.4 % (0.0-6.0); HEMATOCRIT 32 % (39-51); HEMOGLOBIN 10.3 g/dL (13.5-17.5); LYMPHOCYTES % (AUTO) 33.1 % (20.0-44.0); MEAN CORPUSCULAR HGB CONC 32 g/dl (31.0-36.0); MEAN CORPUSCULAR VOLUME 86 fL (80-96); MONOCYTES # (AUTO) 0.3 K/uL (0.1-1.30); NEUTROPHILS # (AUTO) 3.5 K/uL (1.8-8.9); NEUTROPHILS % (AUTO) 59.5 % (43.0-81.0); PLATELET COUNT (AUTO) 274 K/uL (150-450); RED BLOOD CELL COUNT(AUTO) 3.75 MIL/uL (4.5-6.0); WHITE BLOOD COUNT (AUTO) 5.9 K/uL (4.3-11.0)
[2021-10-15 07:47] LABS: CALCIUM, SERUM 8.1 mg/dL (8.5-10.1); CREATININE 0.8 mg/dL (0.6-1.3); POTASSIUM 3.6 mmol/L (3.5-5.1)
[2021-10-15] MEDS: SERTRALINE HCL 25 MG TABLET PO SCH (08:40)
[2021-10-15] MEDS: PANTOPRAZOLE 40 MG TABLET.DR PO SCH (08:40)
[2021-10-15 12:00] VITALS: BP 135/90
[2021-10-15] MEDS: IV NS 0.9% 1,000 ML IV PRN (12:35)
--- NOTE | 2021-10-15 18:27 | NUR ---
MS RN CLOSING NOTES PATIENT ON BED AWAKE AND A/O X4. ABLE TO MAKE NEEDS KNOWN. ON ROOM AIR TOLERATING WELL. NO SOB NOTED. WITH NO COMPLAINTS OF PAIN OR DISCOMFORT AT THIS TIME. WITH IV ACCESS AT MARYA MIDLINE WITH IVF NS @ 75CC/HR INFUSING WELL. WITH RIGHT PIGTAIL CATHETER CONNECTED TO CONTINUOUS SUCTION DRAINING 50ML WHITISH COLORED OUTPUT. DUE MEDS GIVEN. SAFETY MEASURES IN PLACED. HOB OF BED ELEVATED. CALL LIGHT WITHIN REACH. WILL ENDORSE TO NEXT SHIFT FOR TERRI.
--- NOTE | 2021-10-15 19:15 | NUR ---
MS RN OPENING NOTES RECEIVED PATIENT LAYING AWAKE IN BED. A/O X4. PATIENT WITH REGULAR AND UNLABORED BREATHING ON ROOM AIR, TOLERATED WELL. NO SIGNS AND SYMPTOMS OF DISTRESS NOTED AT THIS TIME. NO COMPLAINS OF PAIN OR DISCOMFORT AT THIS TIME. IV ACCESS MARYA MIDLINE INFUSING NS @ 75 ML/HR. IV ACCESS PATENT AND INTACT. SAFETY PRECAUTIONS ENFORCED WITH BED LOCKED AND AT LOWEST POSITION. SIDERAILS UP X2. CALL LIGHT WITHIN REACH AT ALL TIMES. WILL CONTINUE TO MONITOR PATIENT.
[2021-10-15 20:00] VITALS: BP 132/87
[2021-10-16 04:00] VITALS: BP 141/99
[2021-10-16] MEDS: PIPERACILLIN /TAZOBACTAM 3.375 G in IV D5W 100 ML IV SCH ×3 (04:28→21:27)
[2021-10-16] MEDS: IV NS 0.9% 1,000 ML IV PRN ×2 (04:33→21:37)
--- NOTE | 2021-10-16 07:03 | NUR ---
MS RN CLOSING NOTES PATIENT SLEEPING IN BED EASILY AROUSABLE. A/O X4. PATIENT WITH REGULAR AND UNLABORED BREATHING ON ROOM AIR, TOLERATED WELL. NO SIGNS AND SYMPTOMS OF DISTRESS NOTED AT THIS TIME. NO COMPLAINS OF PAIN OR DISCOMFORT AT THIS TIME. IV ACCESS MARYA MIDLINE INFUSING NS @ 75 ML/HR. IV ACCESS PATENT AND INTACT. SAFETY PRECAUTIONS ENFORCED WITH BED LOCKED AND AT LOWEST POSITION. SIDERAILS UP X2. CALL LIGHT WITHIN REACH AT ALL TIMES. WILL ENDORSE CONTINUITY OF CARE TO DAY SHIFT NURSE.
--- NOTE | 2021-10-16 07:30 | NUR ---
RN NOTES PT FOUND SUPINE, APPEARING TO BE SLEEPING, DISPLAYING NO S/S OF DISTRESS, FLACC = 0 AND BREATHING IS EVEN AND UNLABORED ON RA. CHEST TUBE DRESSING IS QUIET, CLEAN AND DRY. NO BUBBLING IN TIDAL CHAMBER, RIGOROUS ASSESSMENT FOUND SUCTION OF SEROUS FLUID ONGOING. R UA MIDLINE IS PATIENT AND INTACT. RN WILL MONITOR AND TREAT THROUGHOUT SHIFT. SAFETY MEASURES IN PLACE, BED LOCKED AND IN LOWEST POSITION, SIDE RAILS UPX2, CALL LIGHT WITHIN REACH, BED ALARM ARMED.
[2021-10-16] MEDS: PANTOPRAZOLE 40 MG TABLET.DR PO SCH (08:03)
[2021-10-16] MEDS: SERTRALINE HCL 25 MG TABLET PO SCH (08:15)
[2021-10-16 10:55] LABS: CALCIUM, SERUM 7.8 mg/dL (8.5-10.1); CREATININE 0.8 mg/dL (0.6-1.3); POTASSIUM 3.4 mmol/L (3.5-5.1)
[2021-10-16 11:01] LABS: BASOPHILS % (AUTO) 0.9 % (0.0-2.0); EOSINOPHILS % (AUTO) 1.4 % (0.0-6.0); HEMATOCRIT 33 % (39-51); HEMOGLOBIN 10.7 g/dL (13.5-17.5); LYMPHOCYTES # (AUTO) 2.1 K/uL (0.8-4.8); LYMPHOCYTES % (AUTO) 36.4 % (20.0-44.0); MEAN CORPUSCULAR HGB CONC 32 g/dl (31.0-36.0); MEAN CORPUSCULAR VOLUME 85 fL (80-96); MONOCYTES # (AUTO) 0.3 K/uL (0.1-1.30); MONOCYTES % (AUTO) 5.9 % (2.0-12.0); NEUTROPHILS # (AUTO) 3.1 K/uL (1.8-8.9); NEUTROPHILS % (AUTO) 55.4 % (43.0-81.0); PLATELET COUNT (AUTO) 259 K/uL (150-450); RED BLOOD CELL COUNT(AUTO) 3.89 MIL/uL (4.5-6.0); WHITE BLOOD COUNT (AUTO) 5.6 K/uL (4.3-11.0)
[2021-10-16 12:00] VITALS: BP 128/86
--- NOTE | 2021-10-16 19:30 | NUR ---
RN NOTES PT FOUND SUPINE, APPEARING TO BE SLEEPING, DISPLAYING NO S/S OF DISTRESS, FLACC = 0 AND BREATHING IS EVEN AND UNLABORED ON RA. CHEST TUBE DRESSING IS QUIET, CLEAN AND DRY. PLEURAL SPACE FLUID MEASURED. R UA MIDLINE IS PATIENT AND INTACT. SBAR AND REPORT GIVEN TO AIRWAYS OPERATIONS SPECIALIST RN, ALL QUESTIONS ANSWERED. SAFETY MEASURES IN PLACE, BED LOCKED AND IN LOWEST POSITION, SIDE RAILS UPX2, CALL LIGHT WITHIN REACH, BED ALARM ARMED. PT ENDORSED IN STABLE CONDITION FOR TERRI.
[2021-10-16 20:00] VITALS: BP 110/82
--- NOTE | 2021-10-16 20:00 | NUR ---
MS RN NOTE PT IN BED AWAKE. NO DISTRESS OR DISCOMFORT NOTED. DENIES PAIN. A/O X4, PIG TAIL DRAINING WELL SEROSEROUS COLOR FLUIDS. INF NS INFUSING AT 75 ML/HR, NO S/S OF INFILTRATION NOTED AT THE SIDE MARYA MIDLINE. SIDE RAILS UP X 2 AND CALL LIGHT WITHIN REACH. VSS. CONTINUE TO MONITOR HIM.
[2021-10-17 04:00] VITALS: BP 138/88
[2021-10-17] MEDS: PIPERACILLIN /TAZOBACTAM 3.375 G in IV D5W 100 ML IV SCH ×3 (04:47→21:47)
--- NOTE | 2021-10-17 06:35 | NUR ---
RN MS CLOSING NOTES PT IN BED, ASLEEP, EASILY AROUSABLE. NO CHANGES IN CONDITION. NO DISTRESS, DISCOMFORT NOTED. NO SI/SX OF PAIN. IVF INFUSING WELL NS AT 75 ML/HR NO SI/SX OF INFILTRATION NOTED. PIGTAIL INTACT AND PATENT, 0 OUTPUT NOTED FOR SHIFT. SIDE RAILS X3, ALL NEEDS ATTENDED. WILL ENDORSE TO DAYSHIFT NURSE TO CONTINUE CARE.
[2021-10-17 06:47] LABS: BASOPHILS % (AUTO) 0.4 % (0.0-2.0); EOSINOPHILS % (AUTO) 1.7 % (0.0-6.0); HEMATOCRIT 32 % (39-51); HEMOGLOBIN 10.5 g/dL (13.5-17.5); LYMPHOCYTES # (AUTO) 2.1 K/uL (0.8-4.8); MEAN CORPUSCULAR HGB CONC 32 g/dl (31.0-36.0); MEAN CORPUSCULAR VOLUME 86 fL (80-96); MONOCYTES # (AUTO) 0.3 K/uL (0.1-1.30); MONOCYTES % (AUTO) 5.5 % (2.0-12.0); NEUTROPHILS # (AUTO) 3.1 K/uL (1.8-8.9); NEUTROPHILS % (AUTO) 55.4 % (43.0-81.0); PLATELET COUNT (AUTO) 246 K/uL (150-450); RED BLOOD CELL COUNT(AUTO) 3.78 MIL/uL (4.5-6.0); WHITE BLOOD COUNT (AUTO) 5.6 K/uL (4.3-11.0)
[2021-10-17 07:10] LABS: CALCIUM, SERUM 8.8 mg/dL (8.5-10.1); CREATININE 0.7 mg/dL (0.6-1.3); POTASSIUM 3.8 mmol/L (3.5-5.1)
--- NOTE | 2021-10-17 07:30 | NUR ---
RN OPENING NOTES RECEIVED PATIENT IN BED. ALERT VERBALLY RESPONSIVE. NOT IN DISTRESS NO COMPLAINTS OF PAIN NOTED. WITH MARYA MIDLINE PATENT AND INTACT IVF RUNNING NS @ 75CCHR. PIGTAIL RIGHT ANTERIOR CHEST INTACT CONNECTED TO CHEST TUBE. BED TO LOWEST POSITION AND LOCKED. CALL LIGHT WITHIN REACH.
[2021-10-17] MEDS: SERTRALINE HCL 25 MG TABLET PO SCH (08:31)
[2021-10-17] MEDS: PANTOPRAZOLE 40 MG TABLET.DR PO SCH (08:31)
[2021-10-17] MEDS: IV NS 0.9% 1,000 ML IV PRN (11:14)
--- NOTE | 2021-10-17 18:24 | NUR ---
RN CLOSING NOTES PATIENT AWAKE, ALERT VERBALLY RESPONSIVE IN BED. NOT IN DISTRESS NO COMPLAINTS OF PAIN NOTED. RIGHT PIGTAIL IN PLACE CONNECTED TO CHEST TUBE WITH 10CC DRAIN. MARYA IV SITE PATENT AND INTACT WITH IVF RUNNING NS @75CC/HR. PATIENT'S APPETITE GOOD. URINE OUTPUT OF 1000CC AND HAD BM X1. BED TO LOWEST POSITION AND LOCKED. CALL LIGHT WITHIN REACH. WILL ENDORSE TO SENIOR SOFTWARE MANAGER NURSE ON DUTY.
[2021-10-17 20:00] VITALS: BP 124/80
--- NOTE | 2021-10-17 20:07 | NUR ---
MS RN OPENING NOTES. PT AWAKE, A&O X4. NO SOB , NO DISTRESS OR DISCOMFORT NOTED. NO REPORT OF PAIN, APPEARS COMFORTABLE. PIGTAIL INTACT AND PATENT, DRAINING BY SUCTION. SIDE RAILS UP X2, CALL LIGHTS WITHIN REACH. VSS. CONTINUE TO MONITOR
[2021-10-18] MEDS: IV NS 0.9% 1,000 ML IV PRN ×2 (01:09→15:54)
[2021-10-18 04:00] VITALS: BP 137/86
[2021-10-18] MEDS: PIPERACILLIN /TAZOBACTAM 3.375 G in IV D5W 100 ML IV SCH ×3 (05:29→20:58)
--- NOTE | 2021-10-18 06:36 | NUR ---
MS RN CLOSING NOTE. PT A&OX4. VSS. PT APPEARS COMFORTABLE, WITH NO COMPLAINT OF PAIN. NO S/S OF RESPIRATORY DISTRESS, SOB, OR DISCOMFORT. PIGTAIL PATENT AND INTACT WITH NO OUTPUT NOTED. SIDE RAILS UP X3, CALL LIGHT WITHIN REACH, BED IN LOWEST POSITION. BLOOD DRAWN FROM MIDLINE, SPECIMEN GIVEN TO PHARMACEUTICAL PROCESS ENGINEER. WILL ENDORSE CARE TO DAYSHIFT NURSE.
--- NOTE | 2021-10-18 07:24 | NUR ---
RN OPENING NOTE PATIENT RECEIVED IN BED, AWAKE, A&OX4. PATIENT ON ROOM AIR WITH NO SIGNS OF LABORED BREATHING AT THIS TIME. PIGTAIL IN PLACE ON RIGHT CHEST, NO DRAINAGE OVERNIGHT. RIGHT UA MIDLINE IN PLACE. NO SIGNS OF ACUTE DISTRESS NOTED AT THIS TIME. BED LOCKED AND IN LOWEST POSITION, CALL LIGHT WITHIN REACH, 2 SIDE RAILS UP. WILL CONTINUE TO MONITOR.
[2021-10-18 07:28] LABS: ALBUMIN 2.1 g/dL (3.4-5.0); BILIRUBIN,TOTAL 0.5 mg/dL (0.2-1.0); CALCIUM, SERUM 8.4 mg/dL (8.5-10.1); CREATININE 0.8 mg/dL (0.6-1.3); MAGNESIUM 1.9 mg/dL (1.8-2.4); POTASSIUM 3.6 mmol/L (3.5-5.1); TOTAL PROTEIN, SERUM 6.1 g/dL (6.4-8.2)
[2021-10-18 07:34] LABS: BASOPHILS % (AUTO) 0.7 % (0.0-2.0); EOSINOPHILS % (AUTO) 1.7 % (0.0-6.0); HEMATOCRIT 32 % (39-51); HEMOGLOBIN 10.5 g/dL (13.5-17.5); LYMPHOCYTES # (AUTO) 1.9 K/uL (0.8-4.8); LYMPHOCYTES % (AUTO) 35.5 % (20.0-44.0); MEAN CORPUSCULAR HGB CONC 32 g/dl (31.0-36.0); MEAN CORPUSCULAR VOLUME 86 fL (80-96); MONOCYTES # (AUTO) 0.3 K/uL (0.1-1.30); MONOCYTES % (AUTO) 5.4 % (2.0-12.0); NEUTROPHILS % (AUTO) 56.7 % (43.0-81.0); PLATELET COUNT (AUTO) 249 K/uL (150-450); RED BLOOD CELL COUNT(AUTO) 3.77 MIL/uL (4.5-6.0); WHITE BLOOD COUNT (AUTO) 5.3 K/uL (4.3-11.0)
[2021-10-18 08:00] VITALS: BP 140/93
[2021-10-18] MEDS: SERTRALINE HCL 25 MG TABLET PO SCH (08:03)
[2021-10-18] MEDS: PANTOPRAZOLE 40 MG TABLET.DR PO SCH (08:03)
[2021-10-18 16:00] VITALS: BP 140/93
--- NOTE | 2021-10-18 19:00 | NUR ---
RN CLOSING NOTE PATIENT REMAINS IN BED, AWAKE, A&OX4. PATIENT ON ROOM AIR WITH NO SIGNS OF LABORED BREATHING AT THIS TIME. PIGTAIL IN PLACE ON RIGHT CHEST, NO DRAINAGE THROUGHOUT SHIFT. RIGHT UA MIDLINE IN PLACE RUNNING NS AT 75 CC/HR. NO SIGNS OF ACUTE DISTRESS NOTED AT THIS TIME. BED LOCKED AND IN LOWEST POSITION, CALL LIGHT WITHIN REACH, 2 SIDE RAILS UP. ALL NEEDS ATTENDED DURING SHIFT. WILL ENDORSE TO NIGHT WAREHOUSE MANAGER NURSE.
--- NOTE | 2021-10-18 19:05 | NUR ---
RN OPENING NOTES RECEIVED PATIENT ON BED, AWAKE, ALERT AND VERBALLY RESPONSIVE. ON ROOM AIR. RESPIRATORY EVEN AND UNLABORED, NO SOB NOTED. REMAIN AFEBRILE. NO S/S OF DISTRESS NOTED. NOTED WITH MARYA MID LINE, INTACT PATENT, FLUSHED WITH NS. NO INFILTRATION NOTED AT SITE. RUNNING WITH NS 1L @ 75ML/HR. NOTED RIGHT CHEST TUBE PIGTAIL CATHETER IN PLACED. SAFETY MEASURE PROVIDED. BED IN LOWEST POSITION, LOCKED. BED ALARM ARMED. CONTINUE TO MONITOR.
[2021-10-18 20:00] VITALS: BP 136/86
[2021-10-19 04:00] VITALS: BP 145/93
[2021-10-19] MEDS: PIPERACILLIN /TAZOBACTAM 3.375 G in IV D5W 100 ML IV SCH ×3 (04:29→20:40)
[2021-10-19] MEDS: IV NS 0.9% 1,000 ML IV PRN ×2 (04:38→20:40)
--- NOTE | 2021-10-19 07:09 | NUR ---
RN NOTES PATIENT REMAIN STABLE THROUGH OUT THE SHIFT. RESPIRATORY EVEN AND UNLABORED, NO SOB NOTED. REMAIN AFEBRILE. NO S/S OF DISTRESS NOTED. RUNNING WITH NS 1L @ 75ML/HR. RIGHT CHEST TUBE PIGTAIL CATHETER IN PLACED, NO OUTPUT NOTED. ALL DUE MEDS GIVEN ORDERED. SAFETY MEASURE PROVIDED. BED IN LOWEST POSITION, LOCKED. BED ALARM ARMED. ENDORSED TO NEXT SHIFT
--- NOTE | 2021-10-19 07:15 | NUR ---
RN OPENING NOTES RECEIVED PATIENT FROM OUTGOING NURSE FOR CONTINUITY OF CARE. PATIENT IN BED, AO X 4, IN NO S/SX OF ACUTE DISTRESS AT THIS TIME. PATIENT HAS CHEST TUBE AND DID NOT HAVE 3 SHIFT OUTPUT FROM CHEST TUBE. ON ROOM AIR, IV SITE AT RIGHT UPPER ARM MIDLINE, LEFT HAND 22 KATHLEEN, PATENT AND FLUSHING WELL, NO S/S OF INFECTION OR INFILTRATION. SAFETY MEASURES IMPLEMENTED. PATIENT BED ALARM IS ON. HEAD OF BED ELEVATED. BED IS LOCKED, IN LOWEST POSITION AND SIDE RAILS UP. CALL LIGHT WITHIN REACH OF THE PATIENT. WILL CONTINUE TO MONITOR AND REASSESS FOR ANY CHANGES.
[2021-10-19] MEDS: PANTOPRAZOLE 40 MG TABLET.DR PO SCH (07:41)
[2021-10-19] MEDS: SERTRALINE HCL 25 MG TABLET PO SCH (08:08)
[2021-10-19] MEDS ORDERED: METR500T PO ×2 (10:39→10:48)
[2021-10-19 12:00] VITALS: BP 139/89
--- NOTE | 2021-10-19 18:53 | NUR ---
RN CLOSING NOTE PATIENT REMAINS IN BED, AWAKE, A&OX4. PATIENT ON ROOM AIR WITH NO SIGNS OF LABORED BREATHING AT THIS TIME. PIGTAIL TAKEN OUT NO DISTRESS OR SHORTNESS OF BREATH THROUGHOUT SHIFT. RIGHT UA MIDLINE IN PLACE RUNNING NS AT 75 CC/HR. NO SIGNS OF ACUTE DISTRESS NOTED AT THIS TIME. BED LOCKED AND IN LOWEST POSITION, CALL LIGHT WITHIN REACH, 2 SIDE RAILS UP. ALL NEEDS ATTENDED DURING SHIFT. WILL ENDORSE TO PLODDING OPERATOR NURSE.
--- NOTE | 2021-10-19 19:45 | NUR ---
MS1 RN NOTES RECEIVED ON HIGH FOWLERS POSITION WATCHING TV PROGRAM,BREATHING REGULAR,NOT IN ANY FORM OF DISTRESS,IVF NS AT 75ML/HR RATE INFUSING WELL ON RIGHT UPPER ARM MIDLINE.S/P PULL OUT OF PIGTAIL CATHETER,SITE SUTURED,NO DISCHARGES NOTED.CALL LIGHT IN REACH,NEEDS ANTICIPATED.
[2021-10-19 20:00] VITALS: BP 143/93
[2021-10-20 04:00] VITALS: BP 134/93
[2021-10-20] MEDS: PIPERACILLIN /TAZOBACTAM 3.375 G in IV D5W 100 ML IV SCH (04:54)
--- NOTE | 2021-10-20 06:37 | NUR ---
ELECTRICAL WORKER NOTES SLEPT WELL AT NIGHT, NO COMPLAINTS THRU OUT SHIFT,IVF IN PROGRESS.DUE IV ABX ADMINISTERED,NO ADVERSE SIDE EFFECTS NOTED,POSSIBLE DISCHARGE TODAY WHEN MEDICALLY STABLE.NO DISTRESS.
--- NOTE | 2021-10-20 08:05 | NUR ---
RN OPENING NOTES RECEIVED PATIENT ON BED AWAKE AND A/O X4. ABLE TO MAKE NEEDS KNOWN. ON ROOM AIR TOLERATING WELL. NO SOB NOTED. WITH NO COMPLAINTS OF PAIN OR DISCOMFORT AT THIS TIME. IV ACCESS AT MARYA MIDLINE PATENT AND INTACT WITH IVF NS @ 75CC/HR INFUSING WELL. SAFETY MEASURES IN PLACED. HOB OF BED ELEVATED. CALL LIGHT WITHIN REACH. WILL CONTINUE TO MONITOR.
[2021-10-20] MEDS: SERTRALINE HCL 25 MG TABLET PO SCH (08:58)
[2021-10-20] MEDS: PANTOPRAZOLE 40 MG TABLET.DR PO SCH (08:58)
[2021-10-20] MEDS ORDERED: IV NS 0.9% 1,000 ML IV PRN (10:03)
--- NOTE | 2021-10-20 12:44 | NUR ---
GLUE WHEEL OPERATOR NOTE PT DISCHARGED WITH STABLE VITAS. ALL DISCHARGE INSTRUCTIONS REVIEWED WITH PATIENT; DC FORM SIGNED. PT VERBALIZED UNDERSTANDING; ALL QUESTIONS ANSWERED. ALL BELONGINGS RETURNED AND FORMED SIGNED. IV ACCESS REMOVED; ID BAND REMOVED. PT WAS ACCOMPANIED OUT THE UNIT VIA WHEELCHAIR BY [facility].
== END 2021-10-20 12:13 | disposition home or self-care (01) | DRG 137 ==
LOC: ER 16:19 → TELE1 21:42 → MEDSG1 10-09 09:27
PROVIDERS: ADMIT Student in an Organized Health Care Education/Training Program; ATTEND Nurse Practitioner Acute Care
PROC: 0W993ZZ Drainage of Right Pleural Cavity, Percutaneous Approach (ICD-10-PCS; principal; 2021-10-01)
PROC: 05HB33Z Insertion of Infusion Device into Right Basilic Vein, Percutaneous Approach (ICD-10-PCS; 2021-10-03)
PROC: 0W9930Z Drainage of Right Pleural Cavity with Drainage Device, Percutaneous Approach (ICD-10-PCS; 2021-10-04)
PROC: 3E0L3GC Introduction of Other Therapeutic Substance into Pleural Cavity, Percutaneous Approach (ICD-10-PCS; 2021-10-10)
DX: J86.9 Pyothorax without fistula (principal); D68.69 Other thrombophilia; E44.0 Moderate protein-calorie malnutrition; J91.8 Pleural effusion in other conditions classified elsewhere; E87.1 Hypo-osmolality and hyponatremia; E88.09 Other disorders of plasma-protein metabolism, not elsewhere classified; D63.8 Anemia in other chronic diseases classified elsewhere; D75.839 Thrombocytosis, unspecified; I48.92 Unspecified atrial flutter; Z20.822 Contact with and (suspected) exposure to COVID-19; Z86.16 Personal history of COVID-19; Z68.25 Body mass index [BMI] 25.0-25.9, adult; J90 Pleural effusion, not elsewhere classified; J98.11 Atelectasis; J98.19 Other pulmonary collapse; B96.89 Other specified bacterial agents as the cause of diseases classified elsewhere; J94.8 Other specified pleural conditions; F41.1 Generalized anxiety disorder; E87.6 Hypokalemia; E86.1 Hypovolemia; M48.10 Ankylosing hyperostosis [Forestier], site unspecified
CPT/HCPCS: 36410; 36415; 71045-TC; 71250-TC; 75989-TC; 80048-TC; 80053-TC; 80061-TC; 80076-TC; 81001; 82728-TC; 83540-TC; 83605-TC; 83735-TC; 84100-TC; 84155; 84165; 84439-TC; 84443-TC; 84484-TC; 85025-TC; 85378-TC; 85610-TC; 85730-TC; 87040-TC; 87070-TC; 87081-TC; 89051-TC; 93307-TC; 93880-TC; 93970-TC; A4216; A6403; C9803; G0378; J0456; J0696; J1956; J2250; J2270; J2543; J2916; J2997; J3010; J3490; J7030; J7050; J7060; Q9967; U0003

== ENCOUNTER 2023-02-13 12:52 | Inpatient (IN) | payer MEDICAID ==
[~2023-02-13] VITALS: Ht 180.3 cm; Wt 104.3 kg
[~2023-02-13 12:52] MED LIST: METR500T PO
[2023-02-13 13:09] VITALS: O2SAT 99
[2023-02-13] MEDS ORDERED: MORPHINE SULFATE INJ 2 MG/ML DISP.SYRIN IV ONE (14:30)
[2023-02-13 14:33] LABS: BASOPHILS % (AUTO) 0.2 % (0.0-2.0); EOSINOPHILS % (AUTO) 0.1 % (0.0-6.0); HEMATOCRIT 46 % (39-51); HEMOGLOBIN 15.8 g/dL (13.5-17.5); LYMPHOCYTES % (AUTO) 9.3 % (20.0-44.0); MEAN CORPUSCULAR HEMOGLOBIN 30 PG (26.0-33.0); MEAN CORPUSCULAR HGB CONC 34 g/dl (31.0-36.0); MEAN CORPUSCULAR VOLUME 89 fL (80-96); MONOCYTES # (AUTO) 1.2 K/uL (0.1-1.30); MONOCYTES % (AUTO) 11.1 % (2.0-12.0); NEUTROPHILS # (AUTO) 8.6 K/uL (1.8-8.9); NEUTROPHILS % (AUTO) 79.3 % (43.0-81.0); PLATELET COUNT (AUTO) 162 K/uL (150-450); RED CELL DISTRIBUTION WIDTH 13.7 % (11.5-15.0); WHITE BLOOD COUNT (AUTO) 10.8 K/uL (4.3-11.0)
[2023-02-13 14:59] LABS: ALBUMIN 3.5 g/dL (3.4-5.0); BILIRUBIN,DIRECT 0.2 mg/dL (0.0-0.2); BILIRUBIN,TOTAL 1.1 mg/dL (0.2-1.0); CREATININE 0.9 mg/dL (0.6-1.3); POTASSIUM 3.7 mmol/L (3.5-5.1); TOTAL PROTEIN, SERUM 7.5 g/dL (6.4-8.2)
[2023-02-13] MEDS ORDERED: MORPHINE SULFATE INJ 2 MG/ML DISP.SYRIN ONE (15:18)
[2023-02-13] MEDS ORDERED: ASPIRIN 325 MG TABLET PO ONE (15:30)
[2023-02-13] MEDS ORDERED: ASPIRIN 325 MG TABLET ONE (15:32)
[2023-02-13] MEDS ORDERED: LIDOCAINE 2% JEL UROJET 10 ML MM ONE (15:37)
[2023-02-13] MEDS ORDERED: TAMSULOSIN 0.4 MG CAP.SR.24H PO ONE (17:00)
[2023-02-13] MEDS ORDERED: MORPHINE SULFATE INJ 2 MG/ML DISP.SYRIN IV PRN (18:00)
[2023-02-13] MEDS ORDERED: ONDANSETRON HCL/PF 4 MG/2 ML VIAL IVP PRN (18:00)
[2023-02-13] MEDS ORDERED: CLONIDINE HCL 0.1 MG TABLET PO PRN (18:00)
[2023-02-13] MEDS ORDERED: ACETAMINOPHEN 325 MG TABLET PO PRN (18:00)
[2023-02-13] MEDS ORDERED: MAGNESIUM HYDROXIDE 30 ML UDC PO PRN (18:00)
[2023-02-13] MEDS ORDERED: MAG HYDROX/AL HYDROX/SIMETH 30 ML UDC PO PRN (18:00)
[2023-02-13] MEDS ORDERED: Z GUARD REMEDY 4 OZ OINT TP PRN (18:00)
[2023-02-13] MEDS ORDERED: ENOXAPARIN SODIUM 30 MG/0.3 ML DISP.SYRIN SQ SCH (18:00)
[2023-02-13] MEDS ORDERED: hydrALAZINE HCL IV 20 MG VIAL IV PRN (18:00)
[2023-02-13 20:00] VITALS: BP 160/78; TEMP 97.9; O2SAT 95
[2023-02-13] MEDS: CEFTRIAXONE 1 G in IV D5W 50 ML IV SCH (21:22)
[2023-02-13] MEDS: IV NS 0.9% 1,000 ML IV PRN (21:22)
[2023-02-13] MEDS: ENOXAPARIN SODIUM 40 MG/0.4 ML DISP.SYRIN SQ SCH (21:35)
[2023-02-14 06:38] LABS: BASOPHILS % (AUTO) 0.3 % (0.0-2.0); EOSINOPHILS % (AUTO) 0.5 % (0.0-6.0); HEMATOCRIT 42 % (39-51); HEMOGLOBIN 14.4 g/dL (13.5-17.5); LYMPHOCYTES # (AUTO) 1.5 K/uL (0.8-4.8); LYMPHOCYTES % (AUTO) 16.3 % (20.0-44.0); MEAN CORPUSCULAR HEMOGLOBIN 31 PG (26.0-33.0); MEAN CORPUSCULAR HGB CONC 35 g/dl (31.0-36.0); MEAN CORPUSCULAR VOLUME 89 fL (80-96); MONOCYTES # (AUTO) 0.8 K/uL (0.1-1.30); MONOCYTES % (AUTO) 9.3 % (2.0-12.0); NEUTROPHILS # (AUTO) 6.7 K/uL (1.8-8.9); NEUTROPHILS % (AUTO) 73.6 % (43.0-81.0); PLATELET COUNT (AUTO) 156 K/uL (150-450); WHITE BLOOD COUNT (AUTO) 9.1 K/uL (4.3-11.0)
[2023-02-14 06:54] LABS: CALCIUM, SERUM 9.1 mg/dL (8.5-10.1); CREATININE 0.7 mg/dL (0.6-1.3); MAGNESIUM 2.4 mg/dL (1.8-2.4); PHOSPHORUS 3.2 mg/dL (2.5-4.9); POTASSIUM 3.6 mmol/L (3.5-5.1)
[2023-02-14 07:00] VITALS: BP 142/95; TEMP 98.2; O2SAT 95
[2023-02-14] MEDS: ASPIRIN 81 MG TAB.CHEW PO SCH (09:33)
[2023-02-14] MEDS: TAMSULOSIN 0.4 MG CAP.SR.24H PO SCH (09:34)
[2023-02-14] MEDS: METOPROLOL TARTRATE 25 MG TABLET PO SCH ×2 (10:19→21:11)
[2023-02-14] MEDS: IV NS 0.9% 1,000 ML IV PRN ×2 (11:16→23:26)
[2023-02-14 16:00] VITALS: BP 130/78; TEMP 98.7; O2SAT 96
[2023-02-14 20:00] VITALS: BP 145/90; TEMP 98.1; O2SAT 96
[2023-02-14] MEDS: CEFTRIAXONE 1 G in IV D5W 50 ML IV SCH (20:52)
[2023-02-14] MEDS: ENOXAPARIN SODIUM 40 MG/0.4 ML DISP.SYRIN SQ SCH (21:15)
[2023-02-15 08:24] VITALS: BP 157/113; TEMP 97.8; O2SAT 96
[2023-02-15] MEDS: ASPIRIN 81 MG TAB.CHEW PO SCH (09:00)
[2023-02-15 09:16] LABS: BASOPHILS % (AUTO) 0.4 % (0.0-2.0); EOSINOPHILS # (AUTO) 0.1 K/uL (0.0-0.7); HEMATOCRIT 43 % (39-51); HEMOGLOBIN 14.7 g/dL (13.5-17.5); LYMPHOCYTES # (AUTO) 1.3 K/uL (0.8-4.8); MEAN CORPUSCULAR HEMOGLOBIN 31 PG (26.0-33.0); MEAN CORPUSCULAR HGB CONC 34 g/dl (31.0-36.0); MEAN CORPUSCULAR VOLUME 90 fL (80-96); MONOCYTES # (AUTO) 0.5 K/uL (0.1-1.30); NEUTROPHILS # (AUTO) 5.1 K/uL (1.8-8.9); NEUTROPHILS % (AUTO) 72.6 % (43.0-81.0); PLATELET COUNT (AUTO) 182 K/uL (150-450); RED CELL DISTRIBUTION WIDTH 13.3 % (11.5-15.0)
[2023-02-15 09:24] LABS: CALCIUM, SERUM 9.2 mg/dL (8.5-10.1); CREATININE 0.8 mg/dL (0.6-1.3); POTASSIUM 3.4 mmol/L (3.5-5.1)
[2023-02-15] MEDS: TAMSULOSIN 0.4 MG CAP.SR.24H PO SCH (09:35)
[2023-02-15] MEDS: METOPROLOL TARTRATE 25 MG TABLET PO SCH ×2 (09:41→21:07)
[2023-02-15 15:58] VITALS: BP 160/97; TEMP 97.9; O2SAT 95
[2023-02-15] MEDS ORDERED: POTASSIUM CHLORIDE 20 MEQ TAB.PRT.SR PO ONE (19:00)
[2023-02-15 20:00] VITALS: BP 126/90; TEMP 97.8; O2SAT 95
[2023-02-15] MEDS: CEFTRIAXONE 1 G in IV D5W 50 ML IV SCH (20:36)
[2023-02-15] MEDS: ENOXAPARIN SODIUM 40 MG/0.4 ML DISP.SYRIN SQ SCH (21:08)
[2023-02-16] MEDS: IV NS 0.9% 1,000 ML IV PRN (00:44)
[2023-02-16 06:07] LABS: BASOPHILS % (AUTO) 0.4 % (0.0-2.0); EOSINOPHILS # (AUTO) 0.1 K/uL (0.0-0.7); EOSINOPHILS % (AUTO) 1.7 % (0.0-6.0); HEMATOCRIT 42 % (39-51); HEMOGLOBIN 14.2 g/dL (13.5-17.5); LYMPHOCYTES # (AUTO) 1.7 K/uL (0.8-4.8); LYMPHOCYTES % (AUTO) 25.1 % (20.0-44.0); MEAN CORPUSCULAR HEMOGLOBIN 30 PG (26.0-33.0); MEAN CORPUSCULAR HGB CONC 34 g/dl (31.0-36.0); MEAN CORPUSCULAR VOLUME 89 fL (80-96); MONOCYTES # (AUTO) 0.7 K/uL (0.1-1.30); MONOCYTES % (AUTO) 9.5 % (2.0-12.0); NEUTROPHILS # (AUTO) 4.4 K/uL (1.8-8.9); NEUTROPHILS % (AUTO) 63.3 % (43.0-81.0); PLATELET COUNT (AUTO) 203 K/uL (150-450); RED CELL DISTRIBUTION WIDTH 13.3 % (11.5-15.0); WHITE BLOOD COUNT (AUTO) 6.9 K/uL (4.3-11.0)
[2023-02-16 06:32] LABS: CALCIUM, SERUM 8.4 mg/dL (8.5-10.1); CREATININE 0.7 mg/dL (0.6-1.3)
[2023-02-16 08:00] VITALS: BP 140/92; TEMP 98.5; O2SAT 95
[2023-02-16] MEDS ORDERED: MAGNESIUM HYDROXIDE 30 ML UDC PO PRN (09:00)
[2023-02-16] MEDS ORDERED: NA PHOS,M-B/NA PHOS,DI-BA 1 EA ENEMA RC PRN (09:30)
[2023-02-16 10:08] VITALS: BP 140/92
[2023-02-16] MEDS: TAMSULOSIN 0.4 MG CAP.SR.24H PO SCH (10:08)
[2023-02-16] MEDS: ASPIRIN 81 MG TAB.CHEW PO SCH (10:08)
[2023-02-16] MEDS: METOPROLOL TARTRATE 25 MG TABLET PO SCH (10:08)
[2023-02-16] MEDS ORDERED: METO25TA20 PO (11:10)
[2023-02-16] MEDS ORDERED: CIPR500T5 PO (11:10)
[2023-02-16] MEDS ORDERED: TAMS-12 PO (11:11)
== END 2023-02-16 14:30 | disposition home or self-care (01) | DRG 465 ==
LOC: ER 13:05 → TELE 18:40 → MED 20:27
PROVIDERS: ADMIT Internal Medicine; ATTEND Internal Medicine
DX: N13.30 Unspecified hydronephrosis (principal); N17.0 Acute kidney failure with tubular necrosis; E87.1 Hypo-osmolality and hyponatremia; K76.0 Fatty (change of) liver, not elsewhere classified; E66.9 Obesity, unspecified; I10 Essential (primary) hypertension; K57.30 Diverticulosis of large intestine without perforation or abscess without bleeding; N40.0 Benign prostatic hyperplasia without lower urinary tract symptoms; E87.70 Fluid overload, unspecified; Z68.32 Body mass index [BMI] 32.0-32.9, adult
CPT/HCPCS: 36415; 71045-TC; 80048-TC; 80076-TC; 83690-TC; 83735-TC; 84100-TC; 84484-TC; 85025-TC; 87081-TC; 93307-TC; A4223; G0378; J0696; J1650; J2270; J3490; J7030; J7060